=== PATIENT | female | born 1930 | race Caucasian/White ===

== ENCOUNTER 2016-07-04 08:22 | Outpatient (CLI) | payer MEDICARE, MEDICAID ==
[~2016-07-04 08:22] MED LIST: ACAR25TA2 PO; AMLO5TAB4 PO; ERYT-111 PO; LEVO750T46 PO; LOSA1TAB35 PO; PRAV40TA3 PO; [UNRECOGNIZED DRUG - CODE]
== END 2016-07-04 23:59 | disposition home or self-care (01) ==
LOC: WOU 08:22
PROVIDERS: ATTEND Podiatrist Foot & Ankle Surgery
DX: I83.013 Varicose veins of right lower extremity with ulcer of ankle (principal); L97.312 Non-pressure chronic ulcer of right ankle with fat layer exposed; I83.891 Varicose veins of right lower extremity with other complications; B35.1 Tinea unguium; E11.9 Type 2 diabetes mellitus without complications; I10 Essential (primary) hypertension; E78.5 Hyperlipidemia, unspecified; Z96.651 Presence of right artificial knee joint
CPT/HCPCS: 15271; A6402; Q4133

== ENCOUNTER 2016-07-11 08:10 | Outpatient (CLI) | payer MEDICARE, MEDICAID | END 2016-07-11 23:59 | disposition home or self-care (01) | LOC: WOU 08:10 | PROVIDERS: ATTEND Podiatrist Foot & Ankle Surgery | DX: I83.013 Varicose veins of right lower extremity with ulcer of ankle (principal); L97.312 Non-pressure chronic ulcer of right ankle with fat layer exposed; I83.891 Varicose veins of right lower extremity with other complications; Z96.651 Presence of right artificial knee joint; I10 Essential (primary) hypertension; E11.9 Type 2 diabetes mellitus without complications; E78.5 Hyperlipidemia, unspecified | CPT/HCPCS: A6402; A6452; G0463 ==

== ENCOUNTER 2016-07-18 08:44 | Outpatient (CLI) | payer MEDICARE, MEDICAID | END 2016-07-18 23:59 | disposition home or self-care (01) | LOC: WOU 08:44 | PROVIDERS: ATTEND Podiatrist Foot & Ankle Surgery | DX: I83.013 Varicose veins of right lower extremity with ulcer of ankle (principal); L97.311 Non-pressure chronic ulcer of right ankle limited to breakdown of skin; B35.1 Tinea unguium; I83.891 Varicose veins of right lower extremity with other complications; Z96.651 Presence of right artificial knee joint; E11.9 Type 2 diabetes mellitus without complications; I10 Essential (primary) hypertension; Z79.899 Other long term (current) drug therapy; Z79.84 Long term (current) use of oral hypoglycemic drugs | CPT/HCPCS: 11042; A6253; A6402 ==

== ENCOUNTER 2016-08-08 08:50 | Outpatient (CLI) | payer MEDICARE, MEDICAID | END 2016-08-08 23:59 | disposition home or self-care (01) | LOC: WOU 08:50 | PROVIDERS: ATTEND Podiatrist Foot & Ankle Surgery | DX: I83.891 Varicose veins of right lower extremity with other complications (principal); Z96.651 Presence of right artificial knee joint; E11.9 Type 2 diabetes mellitus without complications; B35.1 Tinea unguium | CPT/HCPCS: A6402; G0463 ==

== ENCOUNTER 2016-09-12 08:25 | Outpatient (CLI) | payer MEDICARE, MEDICAID | END 2016-09-12 23:59 | disposition home or self-care (01) | LOC: WOU 08:25 | PROVIDERS: ATTEND Podiatrist Foot & Ankle Surgery | DX: I83.891 Varicose veins of right lower extremity with other complications (principal); L85.3 Xerosis cutis; L84 Corns and callosities; E11.9 Type 2 diabetes mellitus without complications | CPT/HCPCS: G0463 ==

== ENCOUNTER 2016-12-12 08:20 | Outpatient (CLI) | payer MEDICARE, MEDICAID | END 2016-12-12 23:59 | disposition home or self-care (01) | LOC: WOU 08:20 | PROVIDERS: ATTEND Podiatrist Foot & Ankle Surgery | DX: I83.013 Varicose veins of right lower extremity with ulcer of ankle (principal); L97.311 Non-pressure chronic ulcer of right ankle limited to breakdown of skin; I83.891 Varicose veins of right lower extremity with other complications; L85.3 Xerosis cutis; I10 Essential (primary) hypertension; E78.5 Hyperlipidemia, unspecified; Z83.3 Family history of diabetes mellitus; Z96.652 Presence of left artificial knee joint | CPT/HCPCS: A6402; G0463 ==

== ENCOUNTER 2016-12-26 09:08 | Outpatient (CLI) | payer MEDICARE, MEDICAID | END 2016-12-26 23:59 | disposition home health service (06) | LOC: WOU 09:08 | PROVIDERS: ATTEND Podiatrist Foot & Ankle Surgery | DX: I83.213 Varicose veins of right lower extremity with both ulcer of ankle and inflammation (principal); L97.311 Non-pressure chronic ulcer of right ankle limited to breakdown of skin; L90.5 Scar conditions and fibrosis of skin; Z83.3 Family history of diabetes mellitus; I10 Essential (primary) hypertension; E78.5 Hyperlipidemia, unspecified; I83.811 Varicose veins of right lower extremity with pain; Z96.652 Presence of left artificial knee joint | CPT/HCPCS: 11042; A6402 ==

== ENCOUNTER 2017-01-02 09:39 | Outpatient (CLI) | payer MEDICARE, MEDICAID | END 2017-01-02 23:59 | disposition home health service (06) | LOC: WOU 09:39 | PROVIDERS: ATTEND Podiatrist Foot & Ankle Surgery | DX: I83.013 Varicose veins of right lower extremity with ulcer of ankle (principal); L97.311 Non-pressure chronic ulcer of right ankle limited to breakdown of skin; I83.892 Varicose veins of left lower extremity with other complications | CPT/HCPCS: 11042; A6402 ==

== ENCOUNTER 2017-01-07 08:47 | Outpatient (CLI) | payer MEDICARE, MEDICAID | END 2017-01-07 23:59 | disposition home health service (06) | LOC: WOU 08:47 | PROVIDERS: ATTEND Podiatrist Foot & Ankle Surgery | DX: E11.69 Type 2 diabetes mellitus with other specified complication (principal); I87.311 Chronic venous hypertension (idiopathic) with ulcer of right lower extremity; L97.311 Non-pressure chronic ulcer of right ankle limited to breakdown of skin; R52 Pain, unspecified; Z96.651 Presence of right artificial knee joint; E11.622 Type 2 diabetes mellitus with other skin ulcer | CPT/HCPCS: 11042; A6402 ==

== ENCOUNTER 2017-01-14 09:10 | Outpatient (CLI) | payer MEDICARE, MEDICAID | END 2017-01-14 23:59 | disposition home health service (06) | LOC: WOU 09:10 | PROVIDERS: ATTEND Podiatrist Foot & Ankle Surgery | DX: I87.311 Chronic venous hypertension (idiopathic) with ulcer of right lower extremity (principal); L97.311 Non-pressure chronic ulcer of right ankle limited to breakdown of skin; Z96.652 Presence of left artificial knee joint; L95.9 Vasculitis limited to the skin, unspecified; E11.9 Type 2 diabetes mellitus without complications | CPT/HCPCS: 11042; A6402 ==

== ENCOUNTER 2017-01-21 13:00 | Outpatient (CLI) | payer MEDICARE, MEDICAID | END 2017-01-21 23:59 | disposition home health service (06) | LOC: WOU 13:00 | PROVIDERS: ATTEND Podiatrist Foot & Ankle Surgery | DX: E11.621 Type 2 diabetes mellitus with foot ulcer (principal); L97.511 Non-pressure chronic ulcer of other part of right foot limited to breakdown of skin; L95.9 Vasculitis limited to the skin, unspecified; I83.891 Varicose veins of right lower extremity with other complications; Z96.651 Presence of right artificial knee joint | CPT/HCPCS: 15271; 15275; A6402 ==

== ENCOUNTER 2017-01-28 09:38 | Outpatient (CLI) | payer MEDICARE, MEDICAID | END 2017-01-28 23:59 | disposition home health service (06) | LOC: WOU 09:38 | PROVIDERS: ATTEND Podiatrist Foot & Ankle Surgery | DX: I83.013 Varicose veins of right lower extremity with ulcer of ankle (principal); L97.311 Non-pressure chronic ulcer of right ankle limited to breakdown of skin; Z96.651 Presence of right artificial knee joint; I10 Essential (primary) hypertension; I83.811 Varicose veins of right lower extremity with pain; E11.51 Type 2 diabetes mellitus with diabetic peripheral angiopathy without gangrene | CPT/HCPCS: 11042; A6402 ==

== ENCOUNTER 2017-02-04 08:34 | Outpatient (CLI) | payer MEDICARE, MEDICAID | END 2017-02-04 23:59 | disposition home health service (06) | LOC: WOU 08:34 | PROVIDERS: ATTEND Podiatrist Foot & Ankle Surgery | DX: I83.015 Varicose veins of right lower extremity with ulcer other part of foot (principal); L97.511 Non-pressure chronic ulcer of other part of right foot limited to breakdown of skin; I83.893 Varicose veins of bilateral lower extremities with other complications; Z96.651 Presence of right artificial knee joint; I10 Essential (primary) hypertension | CPT/HCPCS: 15275; A6402 ×2; Q4132 ×2 ==

== ENCOUNTER 2017-02-11 11:10 | Outpatient (CLI) | payer MEDICARE, MEDICAID | END 2017-02-11 23:59 | disposition home health service (06) | LOC: WOU 11:10 | PROVIDERS: ATTEND Podiatrist Foot & Ankle Surgery | DX: E11.621 Type 2 diabetes mellitus with foot ulcer (principal); L97.511 Non-pressure chronic ulcer of other part of right foot limited to breakdown of skin; Z96.651 Presence of right artificial knee joint; I77.6 Arteritis, unspecified; I87.301 Chronic venous hypertension (idiopathic) without complications of right lower extremity | CPT/HCPCS: 15275; A6402; Q4133 ==

== ENCOUNTER 2017-02-18 09:28 | Outpatient (CLI) | payer MEDICARE, MEDICAID | END 2017-02-18 23:59 | disposition home health service (06) | LOC: WOU 09:28 | PROVIDERS: ATTEND Podiatrist Foot & Ankle Surgery | DX: E11.621 Type 2 diabetes mellitus with foot ulcer (principal); L97.511 Non-pressure chronic ulcer of other part of right foot limited to breakdown of skin; Z96.651 Presence of right artificial knee joint; I77.6 Arteritis, unspecified; I87.301 Chronic venous hypertension (idiopathic) without complications of right lower extremity | CPT/HCPCS: 15275; A6402; Q4133 ×2 ==

== ENCOUNTER 2017-02-27 14:00 | Outpatient (CLI) | payer MEDICARE, MEDICAID | END 2017-02-27 23:59 | disposition home or self-care (01) | LOC: WOU 14:00 | PROVIDERS: ATTEND Podiatrist Foot & Ankle Surgery | DX: I87.2 Venous insufficiency (chronic) (peripheral) (principal); L97.511 Non-pressure chronic ulcer of other part of right foot limited to breakdown of skin; R60.0 Localized edema; Z96.651 Presence of right artificial knee joint | CPT/HCPCS: 87070; 87077; 87186 ×2; A6402; G0463 ==

== ENCOUNTER 2017-03-06 09:50 | Outpatient (CLI) | payer MEDICARE, MEDICAID | END 2017-03-06 23:59 | disposition home health service (06) | DX: I87.311 Chronic venous hypertension (idiopathic) with ulcer of right lower extremity (principal); L97.511 Non-pressure chronic ulcer of other part of right foot limited to breakdown of skin; L90.5 Scar conditions and fibrosis of skin; Z96.651 Presence of right artificial knee joint; B95.7 Other staphylococcus as the cause of diseases classified elsewhere | CPT/HCPCS: 15275; A6402; Q4132 ×2 ==

== ENCOUNTER 2017-03-13 09:18 | Outpatient (CLI) | payer MEDICARE, MEDICAID | END 2017-03-13 23:59 | disposition home health service (06) | LOC: WOU 09:18 | PROVIDERS: ATTEND Podiatrist Foot & Ankle Surgery | DX: I87.311 Chronic venous hypertension (idiopathic) with ulcer of right lower extremity (principal); L97.511 Non-pressure chronic ulcer of other part of right foot limited to breakdown of skin; L90.5 Scar conditions and fibrosis of skin; B95.7 Other staphylococcus as the cause of diseases classified elsewhere; Z96.653 Presence of artificial knee joint, bilateral; M79.671 Pain in right foot | CPT/HCPCS: 11042; A6402 ==

== ENCOUNTER 2017-03-20 09:00 | Outpatient (CLI) | payer MEDICARE, MEDICAID | END 2017-03-20 23:59 | disposition home health service (06) | LOC: WOU 09:00 | PROVIDERS: ATTEND Podiatrist Foot & Ankle Surgery | DX: I87.311 Chronic venous hypertension (idiopathic) with ulcer of right lower extremity (principal); L97.511 Non-pressure chronic ulcer of other part of right foot limited to breakdown of skin; Z96.651 Presence of right artificial knee joint | CPT/HCPCS: 15275; A6402 ==

== ENCOUNTER 2017-03-25 09:19 | Outpatient (CLI) | payer MEDICARE, MEDICAID | END 2017-03-25 23:59 | disposition home health service (06) | LOC: WOU 09:19 | PROVIDERS: ATTEND Podiatrist Foot & Ankle Surgery | DX: I87.311 Chronic venous hypertension (idiopathic) with ulcer of right lower extremity (principal); L97.511 Non-pressure chronic ulcer of other part of right foot limited to breakdown of skin; Z96.651 Presence of right artificial knee joint; L90.9 Atrophic disorder of skin, unspecified | CPT/HCPCS: 11042; A6402 ==

== ENCOUNTER 2017-04-07 09:20 | Outpatient (CLI) | payer MEDICARE, MEDICAID | END 2017-04-07 23:59 | disposition home or self-care (01) | LOC: WOU 09:20 | PROVIDERS: ATTEND Podiatrist Foot & Ankle Surgery | DX: I87.2 Venous insufficiency (chronic) (peripheral) (principal); L97.511 Non-pressure chronic ulcer of other part of right foot limited to breakdown of skin; R60.0 Localized edema; L90.9 Atrophic disorder of skin, unspecified; Z96.651 Presence of right artificial knee joint | CPT/HCPCS: 11042; A6402 ==

== ENCOUNTER 2017-04-14 09:45 | Outpatient (CLI) | payer MEDICARE, MEDICAID | END 2017-04-14 23:59 | disposition home health service (06) | LOC: WOU 09:45 | PROVIDERS: ATTEND Podiatrist Foot & Ankle Surgery | DX: I87.2 Venous insufficiency (chronic) (peripheral) (principal); L97.511 Non-pressure chronic ulcer of other part of right foot limited to breakdown of skin; B35.3 Tinea pedis; L90.9 Atrophic disorder of skin, unspecified; R60.0 Localized edema; Z96.651 Presence of right artificial knee joint | CPT/HCPCS: 15275; A6402 ×2; Q4133 ×2 ==

== ENCOUNTER 2017-04-21 09:39 | Outpatient (CLI) | payer MEDICARE, MEDICAID | END 2017-04-21 23:59 | disposition home health service (06) | LOC: WOU 09:39 | PROVIDERS: ATTEND Podiatrist Foot & Ankle Surgery | DX: I83.015 Varicose veins of right lower extremity with ulcer other part of foot (principal); L97.511 Non-pressure chronic ulcer of other part of right foot limited to breakdown of skin; L90.5 Scar conditions and fibrosis of skin; I83.891 Varicose veins of right lower extremity with other complications; Z96.651 Presence of right artificial knee joint | CPT/HCPCS: 11042; A6402 ==

== ENCOUNTER 2017-05-01 11:00 | Outpatient (CLI) | payer MEDICARE, MEDICAID | END 2017-05-01 23:59 | disposition home health service (06) | LOC: WOU 11:00 | PROVIDERS: ATTEND Podiatrist Foot & Ankle Surgery | DX: I87.2 Venous insufficiency (chronic) (peripheral) (principal); L97.511 Non-pressure chronic ulcer of other part of right foot limited to breakdown of skin; R60.0 Localized edema; L90.5 Scar conditions and fibrosis of skin; Z96.651 Presence of right artificial knee joint | CPT/HCPCS: 11042; A6402 ==

== ENCOUNTER 2017-05-08 09:21 | Outpatient (CLI) | payer MEDICARE, MEDICAID | END 2017-05-08 23:59 | disposition home health service (06) | LOC: WOU 09:21 | PROVIDERS: ATTEND Podiatrist Foot & Ankle Surgery | DX: I87.2 Venous insufficiency (chronic) (peripheral) (principal); L97.511 Non-pressure chronic ulcer of other part of right foot limited to breakdown of skin; R60.0 Localized edema; Z96.651 Presence of right artificial knee joint; I80.9 Phlebitis and thrombophlebitis of unspecified site; L85.3 Xerosis cutis | CPT/HCPCS: 11042; A6402 ==

== ENCOUNTER 2017-06-12 09:40 | Outpatient (CLI) | payer MEDICARE, MEDICAID | END 2017-06-12 23:59 | disposition home health service (06) | LOC: WOU 09:40 | PROVIDERS: ATTEND Podiatrist Foot & Ankle Surgery | DX: I83.215 Varicose veins of right lower extremity with both ulcer other part of foot and inflammation (principal); L97.512 Non-pressure chronic ulcer of other part of right foot with fat layer exposed; I83.891 Varicose veins of right lower extremity with other complications; Z96.651 Presence of right artificial knee joint; M65.871 Other synovitis and tenosynovitis, right ankle and foot; L85.3 Xerosis cutis; E11.9 Type 2 diabetes mellitus without complications | CPT/HCPCS: 17250; A6402 ==

== ENCOUNTER 2017-06-18 11:00 | Outpatient (CLI) | payer MEDICARE, MEDICAID ==
[~2017-06-18 11:00] MED LIST changes: -LOSA1TAB35 PO; +LOSA1TAB42 PO
== END 2017-06-18 23:59 | disposition home or self-care (01) ==
LOC: WOU 11:00
PROVIDERS: ATTEND Podiatrist Foot & Ankle Surgery
DX: I82.531 Chronic embolism and thrombosis of right popliteal vein (principal); R60.0 Localized edema; L97.519 Non-pressure chronic ulcer of other part of right foot with unspecified severity
CPT/HCPCS: 93926-TC; 93971-TC

== ENCOUNTER 2017-06-24 08:05 | Outpatient (CLI) | payer MEDICARE, MEDICAID | END 2017-06-24 23:59 | disposition home health service (06) | LOC: WOU 08:05 | PROVIDERS: ATTEND Podiatrist Foot & Ankle Surgery | DX: I87.311 Chronic venous hypertension (idiopathic) with ulcer of right lower extremity (principal); L97.512 Non-pressure chronic ulcer of other part of right foot with fat layer exposed; Z96.651 Presence of right artificial knee joint | CPT/HCPCS: 11042; A6402 ==

== ENCOUNTER 2017-07-22 09:05 | Outpatient (CLI) | payer MEDICARE, MEDICAID | END 2017-07-22 23:59 | disposition home health service (06) | LOC: WOU 09:05 | PROVIDERS: ATTEND Podiatrist Foot & Ankle Surgery | DX: E11.59 Type 2 diabetes mellitus with other circulatory complications (principal); I87.2 Venous insufficiency (chronic) (peripheral); E11.621 Type 2 diabetes mellitus with foot ulcer; L97.512 Non-pressure chronic ulcer of other part of right foot with fat layer exposed; E11.42 Type 2 diabetes mellitus with diabetic polyneuropathy | CPT/HCPCS: 11042; A6402 ==

== ENCOUNTER → 2017-07-23 | Outpatient (CLI) | payer MEDICARE, MEDICAID ==
[2017-07-23 09:59] LABS: BASOPHILS % (AUTO) 0.3 % (0.0-2.0); EOSINOPHILS # (AUTO) 0.1 /CMM (0.0-0.7); EOSINOPHILS % (AUTO) 2.2 % (0.0-6.0); HEMATOCRIT 38 % (33-45); HEMOGLOBIN 13.4 g/dL (11.5-14.8); LYMPHOCYTES # (AUTO) 0.9 /CMM (0.8-4.8); LYMPHOCYTES % (AUTO) 16.6 % (20.0-44.0); MEAN CORPUSCULAR HEMOGLOBIN 33 PG (26.0-33.0); MEAN CORPUSCULAR HGB CONC 35 g/dl (31.0-36.0); MEAN CORPUSCULAR VOLUME 93 fL (82-100); MONOCYTES # (AUTO) 0.4 /CMM (0.1-1.30); MONOCYTES % (AUTO) 7.3 % (2.0-12.0); NEUTROPHILS # (AUTO) 3.9 /CMM (1.8-8.9); NEUTROPHILS % (AUTO) 73.6 % (43.0-81.0); PLATELET COUNT (AUTO) 230 /CMM (150-450); RDW COEFFICIENT OF VARIATION 13.1 (11.5-15.0); RED BLOOD CELL COUNT(AUTO) 4.08 MIL/uL (4.0-5.2); WHITE BLOOD COUNT (AUTO) 5.2 K/uL (4.3-11.0)
[2017-07-23 10:10] LABS: CARBON DIOXIDE 29 mmol/L (21-32); CHLORIDE 104 mmol/L (98-107); CREATININE 0.9 mg/dL (0.6-1.3); GLUCOSE 84 mg/dL (74-106); POTASSIUM 4.3 mmol/L (3.5-5.1); SODIUM SERUM 142 mmol/L (136-145); UREA NITROGEN, BLOOD 26 mg/dL (7-18)
[2017-07-23 10:27] LABS: INR 1.02 (0.87-1.13)
== END | disposition home or self-care (01) ==
LOC: LAB 09:31
PROVIDERS: ATTEND Podiatrist Foot & Ankle Surgery
DX: Z01.818 Encounter for other preprocedural examination (principal); L97.312 Non-pressure chronic ulcer of right ankle with fat layer exposed; J84.10 Pulmonary fibrosis, unspecified; I70.0 Atherosclerosis of aorta; R91.1 Solitary pulmonary nodule
CPT/HCPCS: 36415; 71045-TC; 80048-TC; 85025-TC; 85610-TC; 85730-TC

== ENCOUNTER 2017-08-04 05:20 | Inpatient (IN) | payer MEDICARE, MEDICAID ==
[~2017-08-04] VITALS: Ht 162.6 cm; Wt 75.3 kg
[2017-08-04] VITALS (7 sets, daily range): BP systolic 109–158; BP diastolic 58–86
[2017-08-04] MEDS ORDERED: BUPIVACAINE 0.5 % PF 150 MG/30 ML VIAL ONE (06:51)
[2017-08-04] MEDS ORDERED: ANESTHESIA TRAY IN PYXIS 1 EA TRAY MC ONE (06:51)
[2017-08-04] MEDS ORDERED: LIDOCAINE 0.5% HCL 50 ML VIAL ONE (06:51)
[2017-08-04] MEDS ORDERED: MINERAL OIL 10 ML VIAL MC ONE (06:53)
[2017-08-04] MEDS ORDERED: LABETALOL HCL IV 100MG VIAL ONE (07:57)
--- NOTE | 2017-08-04 08:30 | NUR ---
RN NOTES: PATIENT ARRIVED FROM SURGERY. PATIENT'S PROCEDURE WAS CANCELLED DUE TO HIGH BLOOD PRESSURE. PATIENT SINUS RHYTHM ON TELE MONITOR WITH HEART RATE OF 70. NONLABORED BREATHING NOTE ON ROOM AIR. PATIENT AOX4 TAJIK SPEAKING. PATIENT DENYING HEADACHES AT THE MOMENT, DENYING DIZZINESS, DENYING PAIN. NO SLURRED SPEECH NOTED. EXTREMITIES ASSESSED. NO WEAKNESS NOTED ON UPPER EXTREMITIES AND NO DRIFT. PATIENT HAS MILD WEAKNESS ON LOWER EXTREMITIES, NORMAL PER DAUGHTER PATIENT USES A CANE AT HOME. PATIENT ABLE TO AMBULATE WITH ASSISTANCE IN A STEADY MANNER. PATIENT PERRLA, AND SMILE IS EVEN. IV SITE ON RIGHT AC PATENT AND INTACT. BED IN LOWEST LOCKED POSITION. CALL LIGHT WITHIN REACH. PATIENT EDUCATED ON USAGE OF CALL LIGHT.
--- NOTE | 2017-08-04 09:20 | NUR ---
RN NOTES: PER PATIENT AND DAUGHTER, PATIENT WANTS TO BE FULL CODE DURING STAY. EXPLAINED ALL ASPECTS OF FULL CODE,PATIENT AGREED. GAVE A POLST TO THE PATIENT'S DAUGHTER WHO REQUIRED IT FOR TO UNDERSTAND OTHER OPTIONS. BOTH PATIENT AND DAUGHTER BOTH VERBALIZED WANTING TO BE FULL CODE DURING STAY
[2017-08-04 09:27] LABS: BASOPHILS % (AUTO) 0.2 % (0.0-2.0); EOSINOPHILS # (AUTO) 0.1 /CMM (0.0-0.7); EOSINOPHILS % (AUTO) 1.6 % (0.0-6.0); HEMATOCRIT 37 % (33-45); HEMOGLOBIN 12.8 g/dL (11.5-14.8); LYMPHOCYTES # (AUTO) 0.8 /CMM (0.8-4.8); LYMPHOCYTES % (AUTO) 20.7 % (20.0-44.0); MEAN CORPUSCULAR HEMOGLOBIN 32 PG (26.0-33.0); MEAN CORPUSCULAR HGB CONC 35 g/dl (31.0-36.0); MEAN CORPUSCULAR VOLUME 93 fL (82-100); MONOCYTES # (AUTO) 0.3 /CMM (0.1-1.30); MONOCYTES % (AUTO) 8.3 % (2.0-12.0); NEUTROPHILS # (AUTO) 2.8 /CMM (1.8-8.9); NEUTROPHILS % (AUTO) 69.2 % (43.0-81.0); PLATELET COUNT (AUTO) 182 /CMM (150-450); RDW COEFFICIENT OF VARIATION 12.7 (11.5-15.0); RED BLOOD CELL COUNT(AUTO) 3.97 MIL/uL (4.0-5.2)
[2017-08-04] MEDS ORDERED: AMLODIPINE BESYLATE 2.5 MG TABLET PO SCH (09:34)
[2017-08-04] MEDS ORDERED: ACARBOSE 25 MG TABLET PO SCH (09:34)
[2017-08-04] MEDS: VALSARTAN 80 MG TABLET PO SCH (09:51)
[2017-08-04] MEDS: CARVEDILOL 6.25 MG TABLET PO SCH ×2 (09:52→21:31)
--- NOTE | 2017-08-04 09:54 | NUR ---
RN NOTES PER DR MCCLURE, GIVE BP MEDS
[2017-08-04 10:08] LABS: CARBON DIOXIDE 26 mmol/L (21-32); CHLORIDE 111 mmol/L (98-107); CREATININE 0.8 mg/dL (0.6-1.3); GLUCOSE 101 mg/dL (74-106); POTASSIUM 3.9 mmol/L (3.5-5.1); SODIUM SERUM 146 mmol/L (136-145); UREA NITROGEN, BLOOD 28 mg/dL (7-18)
[2017-08-04 10:31] LABS: ALANINE AMINOTRANSFERASE 37 U/L (12-78); ALBUMIN 3.6 g/dL (3.4-5.0); ALKALINE PHOSPHATASE 61 U/L (46-116); ASPARTATE AMINOTRANSFERASE 29 U/L (15-37); BILIRUBIN,TOTAL 0.3 mg/dL (0.2-1.0); PHOSPHORUS 3.6 mg/dL (2.5-4.9); TOTAL PROTEIN, SERUM 7.1 g/dL (6.4-8.2)
[2017-08-04 10:33] LABS: FERRITIN 59 ng/mL (8-388); THYROID STIMULATING HORMONE 0.573 uIU/mL (0.358-3.74)
--- NOTE | 2017-08-04 11:00 | NUR ---
RN NOTES: AWAITING IDOSORB ARRIVAL FROM PHARMACY. WOUND KEPT CLEAN AND DRY
--- NOTE | 2017-08-04 11:26 | NUR ---
RN NOTES: PATIENT'S RIGHT ANKLE WOUND CLEANSED WITH NS, SCANT PURULENT DRAINAGE NOTED. DRIED GENTLY AND COVERED WITH MEPILEX
[2017-08-04] MEDS: ATORVASTATIN 10 MG TABLET PO SCH (11:44)
[2017-08-04] MEDS: PANTOPRAZOLE 40 MG TABLET.DR PO SCH (11:44)
[2017-08-04] MEDS: MECLIZINE HCL 12.5 MG TABLET PO SCH ×2 (11:44→17:00)
[2017-08-04] MEDS: AMLODIPINE BESYLATE 5 MG TABLET PO SCH (11:45)
--- NOTE | 2017-08-04 11:48 | NUR ---
RN NOTES: MEDICATIONS ADMINISTERED NOW, AWAITING FREDERICK MATAMOROS'S INSTRUCTIONS. ALSO ORDERED TO ORDER DIABETIC DIET
[2017-08-04] MEDS: CADEXOMER IODINE UD 5 GM TUBE TP SCH ×2 (12:00→17:54)
[2017-08-04] MEDS: MELOXICAM 7.5 MG TABLET PO SCH (12:00)
--- NOTE | 2017-08-04 13:00 | NUR ---
RN NOTES: OFFERED PATIENT TO CHANGE DRESSING WITH IODOSORB. PATIENT DECLINED AND STATED " NO ES SURY." WILL OFFER AGAIN
[2017-08-04 13:47] LABS: IRON, SERUM 87 ug/dl (50-175); TOTAL IRON BINDING CAPACITY 323 ug/dl (250-450)
[2017-08-04] MEDS: CEFAZOLIN SODIUM 1 GM in IV SODIUM CHLORIDE 0.9% 50 ML IV SCH ×2 (13:47→21:31)
--- NOTE | 2017-08-04 15:12 | NUR ---
RN NOTES: FREDERICK MATAMOROS NP ORDERED NORCO 5/325, PRN Q 4 HOURS IF NEEDED FOR HEADACHES DURING PATIENT ROUNDS
[2017-08-04] MEDS ORDERED: HYDROCODONE/APAP 5/325MG 1 EACH TABLET PO PRN (15:30)
[2017-08-04] MEDS: ACARBOSE 50 MG TABLET PO SCH (17:53)
--- NOTE | 2017-08-04 18:11 | NUR ---
RN NOTES: PATIENT REFUSED MECLIZINE AT 1700, STATING THAT SHE DOES NOT FEEL DIZZY. BENEFITS AND RISKS EXPLAINED TO PATIENT. EARLIER IN THE DAY,PATIENT ALSO REFUSED MOBIC, STATING THAT SHE DOES NOT HAVE ANY DISCOMFORT. BENEFITS AND RISKS EXPLAINED MULTIPLE TIMES. PATIENT STILL REFUSING
--- NOTE | 2017-08-04 18:13 | NUR ---
RN NOTES PATIENT CONSENTED TO SURGERY TOMORROW AT 07:30 WITH DAUGHTER BRADEN TRANSLATING
--- NOTE | 2017-08-04 18:15 | NUR ---
RN NOTES: CALLED [facility] FOR DELIVERY OF [facility] P[facility], AWAITING ARRIVAL
--- NOTE | 2017-08-04 18:15 | NUR ---
RN NOTES: SWALLOWING ASSESSED DURING MEAL TIMES. NO COUGHING WHEN EATING, NO DROOLING NOTED ON MOUTH. NO DIFFICULTY NOTED AND PATIENT ABLE TO TOLERATE DIET
--- NOTE | 2017-08-04 19:25 | NUR ---
RN NOTES: PATIENT RESTING IN BED. PATIENT SINUS RHYTHM ON TELE MONITOR WITH HEART RATE OF 70. NONLABORED BREATHING NOTE ON ROOM AIR. PATIENT AOX4 LUXEMBOURGER SPEAKING. PATIENT DENYING HEADACHES AT THE MOMENT, DENYING DIZZINESS, DENYING PAIN. NO SLURRED SPEECH NOTED. EXTREMITIES ASSESSED. NO WEAKNESS NOTED ON UPPER EXTREMITIES AND NO DRIFT. PATIENT AMBULATED TO BATHROOM WITH SUPERVISION IN A STEADY MANNER. PATIENT PERRLA, AND SMILE IS EVEN. IV SITE ON RIGHT AC PATENT AND INTACT. BED IN LOWEST LOCKED POSITION. CALL LIGHT WITHIN REACH.PATIENT INSTRUCTED THAT PER FREDERICK MATAMOROS NP, PATIENT IS TO BE NPO POST MIDNIGHT. PATIENT VERBALIZED UNDERSTANDING. ENDORSED TO NEXT SHIFT
--- NOTE | 2017-08-04 19:30 | NUR ---
TELE/RN NOTES RECEIVED PT. SITTING UP IN BED. AWAKE, ALERT AND ORIENTED X4. BREATHING EVEN AND UNLABORED ON ROOM AIR. NO SOB, RESPIRATORY DISTRESS OR COMPLAINTS OF PAIN NOTED AT THIS TIME. PT. WITH EXTERNAL POLYMER SCIENTIST PRESENT AND INTACT. CURRENT RHYTHM = SINUS RHYTHM HR 63. PT. WITH RIGHT ARM 20 GAUGE IV SALINE LOCK PRESENT, PATENT AND INTACT. PT. WITH FAMILY MEMBERS PRESENT AT BEDSIDE. EDUCATED PT. ON BEING NPO AFTER MIDNIGHT PENDING WOUND DEBRIDEMENT TOMORROW. PER DAYSHIFT NURSE CONSENT IS SIGNED AND PLACED IN CHART. BED LOCKED AND IN LOWEST POSITION, SIDE RAILS UP X2, BED ALARM ON, CALL LIGHT WITHIN REACH, WILL CONTINUE TO MONITOR.
[2017-08-05] VITALS: BP 122/69
[2017-08-05 04:00] VITALS: BP 149/82
[2017-08-05] MEDS: CEFAZOLIN SODIUM 1 GM in IV SODIUM CHLORIDE 0.9% 50 ML IV SCH ×3 (05:39→21:24)
[2017-08-05 06:21] LABS: INR 1.03 (0.87-1.13)
[2017-08-05 06:23] LABS: BASOPHILS % (AUTO) 0.4 % (0.0-2.0); EOSINOPHILS # (AUTO) 0.2 /CMM (0.0-0.7); EOSINOPHILS % (AUTO) 4.4 % (0.0-6.0); HEMATOCRIT 37 % (33-45); HEMOGLOBIN 12.7 g/dL (11.5-14.8); LYMPHOCYTES # (AUTO) 1.1 /CMM (0.8-4.8); LYMPHOCYTES % (AUTO) 27.6 % (20.0-44.0); MEAN CORPUSCULAR HEMOGLOBIN 33 PG (26.0-33.0); MEAN CORPUSCULAR HGB CONC 35 g/dl (31.0-36.0); MEAN CORPUSCULAR VOLUME 94 fL (82-100); MONOCYTES # (AUTO) 0.4 /CMM (0.1-1.30); MONOCYTES % (AUTO) 9.5 % (2.0-12.0); NEUTROPHILS # (AUTO) 2.3 /CMM (1.8-8.9); NEUTROPHILS % (AUTO) 58.1 % (43.0-81.0); PLATELET COUNT (AUTO) 190 /CMM (150-450); RDW COEFFICIENT OF VARIATION 12.9 (11.5-15.0); RED BLOOD CELL COUNT(AUTO) 3.92 MIL/uL (4.0-5.2); WHITE BLOOD COUNT (AUTO) 3.9 K/uL (4.3-11.0)
[2017-08-05 06:29] LABS: ALANINE AMINOTRANSFERASE 26 U/L (12-78); ALBUMIN 3.4 g/dL (3.4-5.0); ALKALINE PHOSPHATASE 59 U/L (46-116); ASPARTATE AMINOTRANSFERASE 26 U/L (15-37); BILIRUBIN,TOTAL 0.4 mg/dL (0.2-1.0); CALCIUM, SERUM 8.9 mg/dL (8.5-10.1); CARBON DIOXIDE 28 mmol/L (21-32); CHLORIDE 108 mmol/L (98-107); CREATININE 0.8 mg/dL (0.6-1.3); GLUCOSE 100 mg/dL (74-106); MAGNESIUM 2.1 mg/dL (1.8-2.4); PHOSPHORUS 3.7 mg/dL (2.5-4.9); SODIUM SERUM 144 mmol/L (136-145); TOTAL PROTEIN, SERUM 6.7 g/dL (6.4-8.2); UREA NITROGEN, BLOOD 23 mg/dL (7-18)
[2017-08-05 06:36] LABS: TROPONIN I < 0.017 ng/mL (0.00-0.056)
--- NOTE | 2017-08-05 06:50 | NUR ---
TELE/RN NOTES PT. LEFT THE FLOOR FOR OR PROCEDURE RIGHT ANKLE WOUND DEBRIDEMENT. PT. VITAL SIGNS STABLE, BP 140/78, HR 85, O2 SAT 99% ON ROOM AIR, RR 20, TEMP 98.0 F. PT. LEFT THE FLOOR VIA BED ACCOMPANIED BY OR NURSE. WILL ENDORSE TO DAYSHIFT NURSE FOR CONTINUITY OF CARE.
[2017-08-05] MEDS ORDERED: MINERAL OIL 10 ML VIAL MC ONE (06:52)
[2017-08-05] MEDS ORDERED: ANESTHESIA TRAY IN PYXIS 1 EA TRAY MC ONE (06:52)
[2017-08-05] MEDS ORDERED: BUPIVACAINE 0.5 % PF 150 MG/30 ML VIAL ONE (06:52)
[2017-08-05] MEDS ORDERED: LIDOCAINE 0.5% HCL 50 ML VIAL ONE (06:53)
[2017-08-05] MEDS ORDERED: FENTANYL PF 100MCG/2ML AMPUL ONE (07:19)
[2017-08-05] MEDS ORDERED: MIDAZOLAM HCL 2 MG/2ML VIAL ONE (07:20)
[2017-08-05 08:09] LABS: CHOLESTEROL 208 mg/dL (<200); HDL CHOLESTEROL 42 mg/dL (40-60); LDL 128 mg/dL (0-99); TRIGLYCERIDES 174 mg/dL (30-150)
--- NOTE | 2017-08-05 08:20 | NUR ---
DIRECTOR OF DANCE NOTES PT BACK FROM SURGERY, ACCOMPANIED BY O.R. NURSES, PT IS AWAKE, ALERT AND ORIENTED, NO COMPLAINT OF PAIN, NOT IN DISTRESS, DRESSINGS TO RIGHT FOOT DRY, VITAL SIGNS TAKEN AND RECORDED, WILL CONTINUE TO MONITOR, DAUGHTER BRAVO AT BEDSIDE, INFORMED OF PLAN OF CARE, VERBALIZED UNDERSTANDING.
[2017-08-05] MEDS: CADEXOMER IODINE UD 5 GM TUBE TP SCH ×2 (09:00→17:00)
[2017-08-05] MEDS ORDERED: LOSARTAN POTASSIUM 50 MG TABLET PO SCH (09:00)
[2017-08-05] MEDS: PANTOPRAZOLE 40 MG TABLET.DR PO SCH (09:15)
[2017-08-05] MEDS: VALSARTAN 80 MG TABLET PO SCH (09:17)
[2017-08-05] MEDS: MECLIZINE HCL 12.5 MG TABLET PO SCH ×2 (09:17→16:50)
[2017-08-05] MEDS: MELOXICAM 7.5 MG TABLET PO SCH (09:17)
[2017-08-05] MEDS: ATORVASTATIN 10 MG TABLET PO SCH (09:17)
[2017-08-05] MEDS: CARVEDILOL 6.25 MG TABLET PO SCH ×2 (09:18→22:13)
[2017-08-05] MEDS: AMLODIPINE BESYLATE 5 MG TABLET PO SCH (09:18)
[2017-08-05] MEDS: ACARBOSE 50 MG TABLET PO SCH ×2 (09:18→16:50)
[2017-08-05] MEDS ORDERED: ACETAMINOPHEN 650 MG/20.3 ML UDC NG PRN (11:00)
[2017-08-05] MEDS: IV NS 0.9% 1,000 ML IV PRN ×2 (11:26→23:42)
[2017-08-05] MEDS ORDERED: ACETAMINOPHEN 325 MG TABLET PO PRN (11:30)
[2017-08-05] MEDS ORDERED: ONDANSETRON HCL/PF 4 MG/2 ML VIAL IV PRN (12:00)
[2017-08-05] MEDS ORDERED: ZOLPIDEM TARTRATE 5 MG TABLET PO PRN (12:00)
[2017-08-05] MEDS ORDERED: MORPHINE SULFATE INJ 2 MG/ML DISP.SYRIN IV PRN (12:00)
[2017-08-05] MEDS: ASCORBIC ACID 500 MG TABLET PO SCH (12:17)
[2017-08-05] MEDS: ZINC SULFATE 220 MG CAPSULE PO SCH (12:17)
[2017-08-05] MEDS ORDERED: HYDROCODONE/APAP 10/325MG 1 EA TABLET PO PRN (13:00)
[2017-08-05] MEDS ORDERED: HYDROCODONE/APAP 5/325MG 1 EACH TABLET PO PRN (13:00)
--- NOTE | 2017-08-05 13:07 | NUR ---
RN MS NOTES PT IN BED, AWAKE, ALERT AND ORIENTED, NO COMPLAINT OF PAIN OR DISCOMFORT, IV FLUIDS INFUSING WELL, SEEN BY DR. SUBRAMANIAN, PLAN OF CARE DISCUSSED WITH PT, CALL LIGHT WITHIN REACH, ASSISTED WITH NEEDS.
[2017-08-05 16:00] VITALS: BP 120/60
--- NOTE | 2017-08-05 18:23 | NUR ---
RN MS NOTES PT IN BED, SLEEPS INTERMITTENTLY, ALERT AND ORIENTED, NO COMPLAINT OF PAIN, NOT IN DISTRESS, NO ACTIVE BLEEDING NOTED AT GRAFT SITE AND DEBRIDEMENT SITE, KEPT RIGHT LEG ELEVATED ORDERED, NOTED WITH GOOD APPETITE, IV FLUIDS INFUSING WELL, VITAL SIGNS STABLE, PM CARE RENDERED.
[2017-08-05 20:00] VITALS: BP 119/64
--- NOTE | 2017-08-05 20:00 | NUR ---
MS KOHINOOR OPERATOR INITIAL NOTES. SEEN PT IN BED RESTING WITH EYES CLOSED BUT AROUSES TO TOUCH. DENIES ANY PAIN OR ANY DISCOMFORT. DRESSING STILL INTACT WITH SOME STAIN. KEPT HER WARM AND COMFORTABLE AT ALL TIMES. SITTER AT THE BEDSIDE FOR SAFETY. WILL CONTINUE TO MONITOR. PLACE CALL LIGHT AT REACH.
[2017-08-06] MEDS: CEFAZOLIN SODIUM 1 GM in IV SODIUM CHLORIDE 0.9% 50 ML IV SCH ×2 (05:11→12:44)
[2017-08-06 06:38] LABS: BASOPHILS % (AUTO) 0.4 % (0.0-2.0); EOSINOPHILS # (AUTO) 0.1 /CMM (0.0-0.7); EOSINOPHILS % (AUTO) 2.7 % (0.0-6.0); HEMATOCRIT 37 % (33-45); HEMOGLOBIN 12.7 g/dL (11.5-14.8); LYMPHOCYTES # (AUTO) 1.1 /CMM (0.8-4.8); LYMPHOCYTES % (AUTO) 24.1 % (20.0-44.0); MEAN CORPUSCULAR HEMOGLOBIN 33 PG (26.0-33.0); MEAN CORPUSCULAR HGB CONC 35 g/dl (31.0-36.0); MEAN CORPUSCULAR VOLUME 94 fL (82-100); MONOCYTES # (AUTO) 0.3 /CMM (0.1-1.30); MONOCYTES % (AUTO) 7.3 % (2.0-12.0); NEUTROPHILS # (AUTO) 3.1 /CMM (1.8-8.9); NEUTROPHILS % (AUTO) 65.5 % (43.0-81.0); PLATELET COUNT (AUTO) 182 /CMM (150-450); RDW COEFFICIENT OF VARIATION 12.7 (11.5-15.0); WHITE BLOOD COUNT (AUTO) 4.7 K/uL (4.3-11.0)
[2017-08-06 06:55] LABS: ALANINE AMINOTRANSFERASE 24 U/L (12-78); ALBUMIN 3.2 g/dL (3.4-5.0); ALKALINE PHOSPHATASE 56 U/L (46-116); ASPARTATE AMINOTRANSFERASE 22 U/L (15-37); BILIRUBIN,TOTAL 0.4 mg/dL (0.2-1.0); CARBON DIOXIDE 27 mmol/L (21-32); CHLORIDE 110 mmol/L (98-107); CREATININE 0.8 mg/dL (0.6-1.3); GLUCOSE 96 mg/dL (74-106); MAGNESIUM 1.8 mg/dL (1.8-2.4); POTASSIUM 3.5 mmol/L (3.5-5.1); SODIUM SERUM 145 mmol/L (136-145); TOTAL PROTEIN, SERUM 6.4 g/dL (6.4-8.2); UREA NITROGEN, BLOOD 20 mg/dL (7-18)
--- NOTE | 2017-08-06 07:30 | NUR ---
RN notes: - patient on bed, looking at TV , with infusing IV , denies pain, non-labored respiration , talking to BRAKER PASSENGER TRAIN, tolerating oral fluids.
--- NOTE | 2017-08-06 07:46 | NUR ---
LV/CLOSING NOTES PT AWAKE AND ALERT WATCHING TV , DENIES ANY PAIN OR ANY DISCOMFORT. SLEPT WELL AND STABLE VANCE THE NIGHT. DRESSING DRY AND INTACT. ALL DUE MEDS GIVEN AND ALL NEEDS MET. KEPT HER WARM AND COMFORTABLE AT ALL TIMES.PLACE CALL LIGHT AT REACH. SITTER AT THE BEDSIDE FOR SAFETY. ENDORSE.
[2017-08-06] MEDS: PANTOPRAZOLE 40 MG TABLET.DR PO SCH (07:56)
[2017-08-06] MEDS: ACARBOSE 50 MG TABLET PO SCH (08:17)
[2017-08-06] MEDS: ATORVASTATIN 10 MG TABLET PO SCH (08:18)
[2017-08-06] MEDS: VALSARTAN 80 MG TABLET PO SCH (08:18)
[2017-08-06] MEDS: AMLODIPINE BESYLATE 5 MG TABLET PO SCH (08:18)
[2017-08-06] MEDS: ZINC SULFATE 220 MG CAPSULE PO SCH (08:18)
[2017-08-06] MEDS: MECLIZINE HCL 12.5 MG TABLET PO SCH (08:18)
[2017-08-06 08:19] VITALS: BP 147/77
[2017-08-06] MEDS: ASCORBIC ACID 500 MG TABLET PO SCH (08:19)
[2017-08-06] MEDS: MELOXICAM 7.5 MG TABLET PO SCH (08:19)
[2017-08-06] MEDS: CARVEDILOL 6.25 MG TABLET PO SCH (08:19)
[2017-08-06] MEDS: CADEXOMER IODINE UD 5 GM TUBE TP SCH (08:22)
[2017-08-06] MEDS: IV NS 0.9% 1,000 ML IV PRN (09:54)
--- NOTE | 2017-08-06 14:45 | NUR ---
Received orders for discharge home from MD AYESHA's associate from Dr. Singleton & to follow-up MD tomorrow at wound care center.
--- NOTE | 2017-08-06 17:30 | NUR ---
- PATIENT ATE DINNER & TOLERATED, DISCHARGED INSTRUCTIONS WERE GIVEN TO SON , TO FOLLOW- UP WITH DR. MCCLURE, ( CARDIAC MD), TO HAVE APPT. AT DR. SUBRAMANIAN 'S OFFICE TOMORROW FOR HER AFFECTED LEG. SON AGREED TO CONTINUE HER HOME MEDS INSTRUCTED BY MD. PATIENT WAS DISCHARGED HOME ALERT, FULLY AWAKE, NOT IN DISTRESS, WITH DRY DRESSING AT THE AFFECTED RIGHT LEG .
== END 2017-08-06 18:15 | disposition home or self-care (01) | DRG 264 ==
LOC: DS 05:20 → MED 08:54 → TELE 17:25 → MED 08-05 10:54
PROVIDERS: ADMIT Nurse Practitioner Acute Care; ATTEND Podiatrist Foot & Ankle Surgery
PROC: 0HBHXZZ Excision of Right Upper Leg Skin, External Approach (ICD-10-PCS; 2017-08-05)
PROC: 0HRMX74 Replacement of Right Foot Skin with Autologous Tissue Substitute, Partial Thickness, External Approach (ICD-10-PCS; principal; 2017-08-05 07:39)
DX: I87.2 Venous insufficiency (chronic) (peripheral) (principal); N17.0 Acute kidney failure with tubular necrosis; I16.1 Hypertensive emergency; L97.319 Non-pressure chronic ulcer of right ankle with unspecified severity; E11.51 Type 2 diabetes mellitus with diabetic peripheral angiopathy without gangrene; Z86.718 Personal history of other venous thrombosis and embolism; F41.9 Anxiety disorder, unspecified; I10 Essential (primary) hypertension; Z96.653 Presence of artificial knee joint, bilateral; Z53.8 Procedure and treatment not carried out for other reasons
CPT/HCPCS: 36415; 80053-TC; 80061-TC; 82306; 82728-TC; 82962-TC; 83540-TC; 83735-TC; 84100-TC; 84439-TC; 84443-TC; 84484-TC; 85025-TC; 85730-TC; 87081-TC; 93307-TC; A4216; A6209; A6402; J0690; J2250; J2704; J3010; J3490; J7030; J7120; J8597; Z7610

== ENCOUNTER 2017-08-07 08:30 | Outpatient (CLI) | payer MEDICARE, MEDICAID | END 2017-08-07 23:59 | disposition home health service (06) | LOC: WOU 08:30 | PROVIDERS: ATTEND Podiatrist Foot & Ankle Surgery | DX: I87.2 Venous insufficiency (chronic) (peripheral) (principal); L97.512 Non-pressure chronic ulcer of other part of right foot with fat layer exposed; M06.9 Rheumatoid arthritis, unspecified; I10 Essential (primary) hypertension; Z96.651 Presence of right artificial knee joint | CPT/HCPCS: A6402 ×2; G0463 ==

== ENCOUNTER 2017-08-12 09:11 | Outpatient (CLI) | payer MEDICARE, MEDICAID | END 2017-08-12 23:59 | disposition home health service (06) | LOC: WOU 09:11 | PROVIDERS: ATTEND Specialist | DX: I83.013 Varicose veins of right lower extremity with ulcer of ankle (principal); L97.319 Non-pressure chronic ulcer of right ankle with unspecified severity; T86.828 Other complications of skin graft (allograft) (autograft); E11.621 Type 2 diabetes mellitus with foot ulcer; I10 Essential (primary) hypertension; E78.5 Hyperlipidemia, unspecified; Z96.651 Presence of right artificial knee joint | CPT/HCPCS: A6402 ×2; G0463 ==

== ENCOUNTER 2017-08-19 09:05 | Outpatient (CLI) | payer MEDICARE, MEDICAID | END 2017-08-19 23:59 | disposition home health service (06) | LOC: WOU 09:05 | PROVIDERS: ATTEND Specialist | DX: E11.621 Type 2 diabetes mellitus with foot ulcer (principal); L97.519 Non-pressure chronic ulcer of other part of right foot with unspecified severity; T86.828 Other complications of skin graft (allograft) (autograft); I10 Essential (primary) hypertension; E78.5 Hyperlipidemia, unspecified; I83.90 Asymptomatic varicose veins of unspecified lower extremity | CPT/HCPCS: A6253; A6402; G0463 ==

== ENCOUNTER 2017-08-26 09:00 | Outpatient (CLI) | payer MEDICARE, MEDICAID | END 2017-08-26 23:59 | disposition home health service (06) | LOC: WOU 09:00 | PROVIDERS: ATTEND Podiatrist Foot & Ankle Surgery | DX: Z48.01 Encounter for change or removal of surgical wound dressing (principal); I87.2 Venous insufficiency (chronic) (peripheral); Z96.651 Presence of right artificial knee joint; L97.318 Non-pressure chronic ulcer of right ankle with other specified severity | CPT/HCPCS: A6402; G0463 ==

== ENCOUNTER 2017-09-16 09:14 | Outpatient (CLI) | payer MEDICARE, MEDICAID | END 2017-09-16 23:59 | disposition home health service (06) | LOC: WOU 09:14 | PROVIDERS: ATTEND Podiatrist Foot & Ankle Surgery | DX: E11.622 Type 2 diabetes mellitus with other skin ulcer (principal); L97.322 Non-pressure chronic ulcer of left ankle with fat layer exposed; I87.2 Venous insufficiency (chronic) (peripheral); M79.671 Pain in right foot; R60.0 Localized edema | CPT/HCPCS: A6402; G0463 ==

== ENCOUNTER 2017-09-18 09:27 | Outpatient (CLI) | payer MEDICARE, MEDICAID ==
[2017-09-18 09:43] LABS: BASOPHILS % (AUTO) 0.2 % (0.0-2.0); EOSINOPHILS # (AUTO) 0.1 /CMM (0.0-0.7); EOSINOPHILS % (AUTO) 2.8 % (0.0-6.0); HEMATOCRIT 38 % (33-45); HEMOGLOBIN 13.2 g/dL (11.5-14.8); LYMPHOCYTES # (AUTO) 0.9 /CMM (0.8-4.8); LYMPHOCYTES % (AUTO) 23.9 % (20.0-44.0); MEAN CORPUSCULAR HEMOGLOBIN 32 PG (26.0-33.0); MEAN CORPUSCULAR HGB CONC 35 g/dl (31.0-36.0); MEAN CORPUSCULAR VOLUME 93 fL (82-100); MONOCYTES # (AUTO) 0.3 /CMM (0.1-1.30); MONOCYTES % (AUTO) 8.5 % (2.0-12.0); NEUTROPHILS # (AUTO) 2.4 /CMM (1.8-8.9); NEUTROPHILS % (AUTO) 64.6 % (43.0-81.0); PLATELET COUNT (AUTO) 197 /CMM (150-450); RDW COEFFICIENT OF VARIATION 12.2 (11.5-15.0); RED BLOOD CELL COUNT(AUTO) 4.13 MIL/uL (4.0-5.2); WHITE BLOOD COUNT (AUTO) 3.8 K/uL (4.3-11.0)
[2017-09-18 09:54] LABS: ALBUMIN 3.9 g/dL (3.4-5.0)
[2017-09-18 09:57] LABS: C-REACTIVE PROTEIN < 0.2 mg/dL (0.0-0.9); PREALBUMIN 25.1 MG/DL (18.0-35.7)
== END 2017-09-18 23:59 | disposition home or self-care (01) ==
LOC: LAB 09:27
PROVIDERS: ATTEND Podiatrist Foot & Ankle Surgery
DX: L97.519 Non-pressure chronic ulcer of other part of right foot with unspecified severity (principal)
CPT/HCPCS: 36415; 82040-TC; 84134-TC; 85025-TC; 85652-TC; 86140-TC

== ENCOUNTER 2017-09-23 08:53 | Outpatient (CLI) | payer MEDICARE, MEDICAID | END 2017-09-23 23:59 | disposition home health service (06) | LOC: WOU 08:53 | PROVIDERS: ATTEND Podiatrist Foot & Ankle Surgery | DX: L03.116 Cellulitis of left lower limb (principal); E11.9 Type 2 diabetes mellitus without complications; I87.2 Venous insufficiency (chronic) (peripheral); Z96.651 Presence of right artificial knee joint; R60.0 Localized edema | CPT/HCPCS: A6402; G0463 ==

== ENCOUNTER 2017-10-21 09:17 | Outpatient (CLI) | payer MEDICARE, MEDICAID | END 2017-10-21 23:59 | disposition home health service (06) | LOC: WOU 09:17 | PROVIDERS: ATTEND Podiatrist Foot & Ankle Surgery | DX: I87.2 Venous insufficiency (chronic) (peripheral) (principal); L97.311 Non-pressure chronic ulcer of right ankle limited to breakdown of skin; L03.115 Cellulitis of right lower limb; L85.3 Xerosis cutis; L56.8 Other specified acute skin changes due to ultraviolet radiation; X32.XXXA Exposure to sunlight, initial encounter; Y92.89 Other specified places as the place of occurrence of the external cause; R60.9 Edema, unspecified; E11.9 Type 2 diabetes mellitus without complications | CPT/HCPCS: 11042; 87070-TC; 87075-TC; 87186-TC; A6402 ==

== ENCOUNTER 2017-10-28 09:04 | Outpatient (CLI) | payer MEDICARE, MEDICAID | END 2017-10-28 23:59 | disposition home health service (06) | LOC: WOU 09:04 | PROVIDERS: ATTEND Podiatrist Foot & Ankle Surgery | DX: I87.2 Venous insufficiency (chronic) (peripheral) (principal); R60.0 Localized edema; L85.3 Xerosis cutis; E11.59 Type 2 diabetes mellitus with other circulatory complications; Z96.651 Presence of right artificial knee joint | CPT/HCPCS: 29581; A6207; A6402 ==

== ENCOUNTER → 2017-11-04 | Outpatient (CLI) | payer MEDICARE, MEDICAID | END | disposition home health service (06) | LOC: WOU 09:15 | PROVIDERS: ATTEND Podiatrist Foot & Ankle Surgery | DX: I87.2 Venous insufficiency (chronic) (peripheral) (principal); L97.519 Non-pressure chronic ulcer of other part of right foot with unspecified severity; R60.9 Edema, unspecified; L85.3 Xerosis cutis; L81.9 Disorder of pigmentation, unspecified; E11.9 Type 2 diabetes mellitus without complications | CPT/HCPCS: A6207; A6402; G0463 ==

== ENCOUNTER 2017-11-11 09:20 | Outpatient (CLI) | payer MEDICARE, MEDICAID | END 2017-11-11 23:59 | disposition home health service (06) | LOC: WOU 09:20 | PROVIDERS: ATTEND Podiatrist Foot & Ankle Surgery | DX: I87.391 Chronic venous hypertension (idiopathic) with other complications of right lower extremity (principal); L90.9 Atrophic disorder of skin, unspecified; Z96.651 Presence of right artificial knee joint; E11.9 Type 2 diabetes mellitus without complications | CPT/HCPCS: 29581; A6207; A6402; G0463 ==

== ENCOUNTER 2017-11-18 09:08 | Outpatient (CLI) | payer MEDICARE, MEDICAID | END 2017-11-18 23:59 | disposition home or self-care (01) | LOC: WOU 09:08 | PROVIDERS: ATTEND Podiatrist Foot & Ankle Surgery | DX: I87.8 Other specified disorders of veins (principal); R60.0 Localized edema; L85.3 Xerosis cutis; E11.9 Type 2 diabetes mellitus without complications; Z86.31 Personal history of diabetic foot ulcer | CPT/HCPCS: 29581; A6207; A6402; G0463 ==

== ENCOUNTER 2017-11-25 08:42 | Outpatient (CLI) | payer MEDICARE, MEDICAID | END 2017-11-25 23:59 | disposition home health service (06) | LOC: WOU 08:42 | PROVIDERS: ATTEND Podiatrist Foot & Ankle Surgery | DX: I87.301 Chronic venous hypertension (idiopathic) without complications of right lower extremity (principal); E11.9 Type 2 diabetes mellitus without complications | CPT/HCPCS: G0463 ==

== ENCOUNTER 2017-12-08 11:10 | Outpatient (CLI) | payer MEDICARE, MEDICAID | END 2017-12-08 23:59 | disposition home health service (06) | LOC: WOU 11:10 | PROVIDERS: ATTEND Podiatrist Foot & Ankle Surgery | DX: I83.891 Varicose veins of right lower extremity with other complications (principal); L85.3 Xerosis cutis; E11.9 Type 2 diabetes mellitus without complications; R42 Dizziness and giddiness; H53.8 Other visual disturbances | CPT/HCPCS: 82962-TC; A6402; G0463 ==

== ENCOUNTER 2018-02-12 08:35 | Outpatient (CLI) | payer MEDICARE, MEDICAID | END 2018-02-12 23:59 | disposition home or self-care (01) | LOC: WOU 08:35 | PROVIDERS: ATTEND Podiatrist Foot & Ankle Surgery | DX: I87.311 Chronic venous hypertension (idiopathic) with ulcer of right lower extremity (principal); L97.312 Non-pressure chronic ulcer of right ankle with fat layer exposed; E11.42 Type 2 diabetes mellitus with diabetic polyneuropathy; I10 Essential (primary) hypertension; Z79.899 Other long term (current) drug therapy | CPT/HCPCS: 11042; 87070-TC; 87186-TC; A6402; Z7610 ==

== ENCOUNTER 2018-02-19 08:52 | Outpatient (CLI) | payer MEDICARE, MEDICAID | END 2018-02-19 23:59 | disposition home health service (06) | LOC: WOU 08:52 | PROVIDERS: ATTEND Podiatrist Foot & Ankle Surgery | DX: I87.2 Venous insufficiency (chronic) (peripheral) (principal); L97.312 Non-pressure chronic ulcer of right ankle with fat layer exposed; I89.0 Lymphedema, not elsewhere classified | CPT/HCPCS: 11042; A6402; Z7610 ==

== ENCOUNTER 2018-02-26 08:45 | Outpatient (CLI) | payer MEDICARE, MEDICAID | END 2018-02-26 23:59 | disposition home health service (06) | LOC: WOU 08:45 | PROVIDERS: ATTEND Podiatrist Foot & Ankle Surgery | DX: I87.2 Venous insufficiency (chronic) (peripheral) (principal); L97.312 Non-pressure chronic ulcer of right ankle with fat layer exposed; I89.0 Lymphedema, not elsewhere classified; L03.115 Cellulitis of right lower limb; Z86.718 Personal history of other venous thrombosis and embolism; E11.9 Type 2 diabetes mellitus without complications | CPT/HCPCS: 11042; A6402; Z7610 ==

== ENCOUNTER 2018-03-12 09:37 | Outpatient (CLI) | payer MEDICARE, MEDICAID | END 2018-03-12 23:59 | disposition home health service (06) | LOC: WOU 09:37 | PROVIDERS: ATTEND Podiatrist Foot & Ankle Surgery | DX: I87.311 Chronic venous hypertension (idiopathic) with ulcer of right lower extremity (principal); L97.312 Non-pressure chronic ulcer of right ankle with fat layer exposed; I89.0 Lymphedema, not elsewhere classified; T86.821 Skin graft (allograft) (autograft) failure; Z79.899 Other long term (current) drug therapy | CPT/HCPCS: 11042; A6402; Z7610 ==

== ENCOUNTER 2018-03-19 08:59 | Outpatient (CLI) | payer MEDICARE, MEDICAID | END 2018-03-19 23:59 | disposition home health service (06) | LOC: WOU 08:59 | PROVIDERS: ATTEND Podiatrist Foot & Ankle Surgery | DX: I87.2 Venous insufficiency (chronic) (peripheral) (principal); L97.312 Non-pressure chronic ulcer of right ankle with fat layer exposed; R60.0 Localized edema; L90.5 Scar conditions and fibrosis of skin; E11.9 Type 2 diabetes mellitus without complications | CPT/HCPCS: 15271; A6253; A6402; Q4133 ×2; Z7610 ==

== ENCOUNTER 2018-03-26 08:45 | Outpatient (CLI) | payer MEDICARE, MEDICAID | END 2018-03-26 23:59 | disposition home health service (06) | LOC: WOU 08:45 | PROVIDERS: ATTEND Podiatrist Foot & Ankle Surgery | DX: I83.213 Varicose veins of right lower extremity with both ulcer of ankle and inflammation (principal); L97.312 Non-pressure chronic ulcer of right ankle with fat layer exposed; E11.59 Type 2 diabetes mellitus with other circulatory complications; Z86.718 Personal history of other venous thrombosis and embolism | CPT/HCPCS: 15271; A6402; Q4133; Z7610 ==

== ENCOUNTER 2018-04-02 09:11 | Outpatient (CLI) | payer MEDICARE, MEDICAID | END 2018-04-02 23:59 | disposition home health service (06) | LOC: WOU 09:11 | PROVIDERS: ATTEND Podiatrist Foot & Ankle Surgery | DX: I87.311 Chronic venous hypertension (idiopathic) with ulcer of right lower extremity (principal); L97.312 Non-pressure chronic ulcer of right ankle with fat layer exposed; E11.9 Type 2 diabetes mellitus without complications; Z86.718 Personal history of other venous thrombosis and embolism | CPT/HCPCS: 11042; A6402; Z7610 ==

== ENCOUNTER 2018-04-09 09:18 | Outpatient (CLI) | payer MEDICARE, MEDICAID | END 2018-04-09 23:59 | disposition home health service (06) | LOC: WOU 09:18 | PROVIDERS: ATTEND Podiatrist Foot & Ankle Surgery | DX: I87.311 Chronic venous hypertension (idiopathic) with ulcer of right lower extremity (principal); L97.312 Non-pressure chronic ulcer of right ankle with fat layer exposed; Z86.718 Personal history of other venous thrombosis and embolism; E11.59 Type 2 diabetes mellitus with other circulatory complications | CPT/HCPCS: 11042; A6402; Z7610 ==

== ENCOUNTER 2018-06-11 09:20 | Outpatient (CLI) | payer MEDICARE, MEDICAID | END 2018-06-11 23:59 | disposition home health service (06) | LOC: WOU 09:20 | PROVIDERS: ATTEND Podiatrist Foot & Ankle Surgery | DX: I83.213 Varicose veins of right lower extremity with both ulcer of ankle and inflammation (principal); L97.312 Non-pressure chronic ulcer of right ankle with fat layer exposed; R60.0 Localized edema; M79.671 Pain in right foot; E11.59 Type 2 diabetes mellitus with other circulatory complications; Z86.718 Personal history of other venous thrombosis and embolism; Z79.82 Long term (current) use of aspirin; Z79.899 Other long term (current) drug therapy; L90.5 Scar conditions and fibrosis of skin; I87.8 Other specified disorders of veins | CPT/HCPCS: 11042; A6402; Z7610 ==

== ENCOUNTER 2018-06-18 09:45 | Outpatient (CLI) | payer MEDICARE, MEDICAID | END 2018-06-18 23:59 | disposition home or self-care (01) | LOC: WOU 09:45 | PROVIDERS: ATTEND Podiatrist Foot & Ankle Surgery | DX: I83.213 Varicose veins of right lower extremity with both ulcer of ankle and inflammation (principal); L97.312 Non-pressure chronic ulcer of right ankle with fat layer exposed; R60.0 Localized edema; E11.51 Type 2 diabetes mellitus with diabetic peripheral angiopathy without gangrene; Z79.82 Long term (current) use of aspirin; Z79.899 Other long term (current) drug therapy | CPT/HCPCS: 11042; A6402; Z7610 ==

== ENCOUNTER 2018-07-06 09:20 | Outpatient (CLI) | payer MEDICARE, MEDICAID | END 2018-07-06 23:59 | disposition home health service (06) | LOC: WOU 09:20 | PROVIDERS: ATTEND Podiatrist Foot & Ankle Surgery | DX: I87.2 Venous insufficiency (chronic) (peripheral) (principal); L97.312 Non-pressure chronic ulcer of right ankle with fat layer exposed; R60.0 Localized edema; M79.671 Pain in right foot; Z79.82 Long term (current) use of aspirin | CPT/HCPCS: 11042; A6402; Z7610 ==

== ENCOUNTER 2018-07-13 10:00 | Outpatient (CLI) | payer MEDICARE, MEDICAID | END 2018-07-13 23:59 | disposition home or self-care (01) | LOC: WOU 10:00 | PROVIDERS: ATTEND Podiatrist Foot & Ankle Surgery | DX: I87.2 Venous insufficiency (chronic) (peripheral) (principal); L97.312 Non-pressure chronic ulcer of right ankle with fat layer exposed; R60.0 Localized edema; M25.571 Pain in right ankle and joints of right foot; Z79.82 Long term (current) use of aspirin | CPT/HCPCS: 11042; A6402; Z7610 ==

== ENCOUNTER 2018-07-23 09:20 | Outpatient (CLI) | payer MEDICARE, MEDICAID | END 2018-07-23 23:59 | disposition home or self-care (01) | LOC: WOU 09:20 | PROVIDERS: ATTEND Podiatrist Foot & Ankle Surgery | DX: I83.213 Varicose veins of right lower extremity with both ulcer of ankle and inflammation (principal); L97.312 Non-pressure chronic ulcer of right ankle with fat layer exposed; I83.891 Varicose veins of right lower extremity with other complications; E11.9 Type 2 diabetes mellitus without complications; Z86.718 Personal history of other venous thrombosis and embolism; Z79.82 Long term (current) use of aspirin | CPT/HCPCS: 11042; A6402; Z7610 ==

== ENCOUNTER 2018-07-30 09:00 | Outpatient (CLI) | payer MEDICARE, MEDICAID | END 2018-07-30 23:59 | disposition home or self-care (01) | LOC: WOU 09:00 | PROVIDERS: ATTEND Podiatrist Foot & Ankle Surgery | DX: I83.213 Varicose veins of right lower extremity with both ulcer of ankle and inflammation (principal); L97.312 Non-pressure chronic ulcer of right ankle with fat layer exposed; E11.42 Type 2 diabetes mellitus with diabetic polyneuropathy; L03.115 Cellulitis of right lower limb; I80.8 Phlebitis and thrombophlebitis of other sites; Z79.82 Long term (current) use of aspirin; Z79.84 Long term (current) use of oral hypoglycemic drugs; E11.59 Type 2 diabetes mellitus with other circulatory complications | CPT/HCPCS: 11042; 87070-TC; A6402 ==

== ENCOUNTER 2018-08-06 09:22 | Outpatient (CLI) | payer MEDICARE, MEDICAID | END 2018-08-06 23:59 | disposition home or self-care (01) | LOC: WOU 09:22 | PROVIDERS: ATTEND Podiatrist Foot & Ankle Surgery | DX: I83.213 Varicose veins of right lower extremity with both ulcer of ankle and inflammation (principal); L97.312 Non-pressure chronic ulcer of right ankle with fat layer exposed; R60.0 Localized edema; Z79.82 Long term (current) use of aspirin; Z79.899 Other long term (current) drug therapy; L90.5 Scar conditions and fibrosis of skin; E11.9 Type 2 diabetes mellitus without complications; Z79.84 Long term (current) use of oral hypoglycemic drugs | CPT/HCPCS: 11042; A6402 ==

== ENCOUNTER 2018-08-17 09:15 | Outpatient (CLI) | payer MEDICARE, MEDICAID | END 2018-08-17 23:59 | disposition home or self-care (01) | LOC: WOU 09:15 | PROVIDERS: ATTEND Podiatrist Foot & Ankle Surgery | DX: I87.311 Chronic venous hypertension (idiopathic) with ulcer of right lower extremity (principal); L97.312 Non-pressure chronic ulcer of right ankle with fat layer exposed; E11.9 Type 2 diabetes mellitus without complications; I10 Essential (primary) hypertension; Z79.82 Long term (current) use of aspirin | CPT/HCPCS: 11042; A6402; G0463 ==

== ENCOUNTER 2018-08-27 08:25 | Outpatient (CLI) | payer MEDICARE, MEDICAID | END 2018-08-27 23:59 | disposition home health service (06) | LOC: WOU 08:25 | PROVIDERS: ATTEND Podiatrist Foot & Ankle Surgery | DX: I83.013 Varicose veins of right lower extremity with ulcer of ankle (principal); L97.312 Non-pressure chronic ulcer of right ankle with fat layer exposed; L97.818 Non-pressure chronic ulcer of other part of right lower leg with other specified severity; E11.9 Type 2 diabetes mellitus without complications; Z79.82 Long term (current) use of aspirin; Z79.84 Long term (current) use of oral hypoglycemic drugs | CPT/HCPCS: 11042; A6207; A6402 ==

== ENCOUNTER 2018-09-03 09:00 | Outpatient (CLI) | payer MEDICARE, MEDICAID | END 2018-09-03 23:59 | disposition home health service (06) | LOC: WOU 09:00 | PROVIDERS: ATTEND Podiatrist Foot & Ankle Surgery | DX: I83.213 Varicose veins of right lower extremity with both ulcer of ankle and inflammation (principal); L97.312 Non-pressure chronic ulcer of right ankle with fat layer exposed; I83.891 Varicose veins of right lower extremity with other complications; E11.9 Type 2 diabetes mellitus without complications; Z79.82 Long term (current) use of aspirin; Z79.899 Other long term (current) drug therapy | CPT/HCPCS: 11042; A6402 ==

== ENCOUNTER 2018-09-10 09:07 | Outpatient (CLI) | payer MEDICARE, MEDICAID | END 2018-09-10 23:59 | disposition home health service (06) | LOC: WOU 09:07 | PROVIDERS: ATTEND Podiatrist Foot & Ankle Surgery | DX: I83.213 Varicose veins of right lower extremity with both ulcer of ankle and inflammation (principal); L97.312 Non-pressure chronic ulcer of right ankle with fat layer exposed; Z79.82 Long term (current) use of aspirin; E11.9 Type 2 diabetes mellitus without complications; Z79.84 Long term (current) use of oral hypoglycemic drugs; R60.0 Localized edema | CPT/HCPCS: 11042; A6402 ==

== ENCOUNTER 2018-09-17 09:22 | Outpatient (CLI) | payer MEDICARE, MEDICAID | END 2018-09-17 23:59 | disposition home health service (06) | LOC: WOU 09:22 | PROVIDERS: ATTEND Podiatrist Foot & Ankle Surgery | DX: I87.311 Chronic venous hypertension (idiopathic) with ulcer of right lower extremity (principal); L97.312 Non-pressure chronic ulcer of right ankle with fat layer exposed; R60.0 Localized edema; Z79.82 Long term (current) use of aspirin; E11.9 Type 2 diabetes mellitus without complications; I10 Essential (primary) hypertension | CPT/HCPCS: 11042; A6402 ==

== ENCOUNTER 2018-09-20 08:40 | Outpatient (CLI) | payer MEDICARE, MEDICAID ==
[2018-09-22 19:11] LABS: CCP IgG/IgA AB 5 units (0-19)
== END 2018-09-20 23:59 | disposition home or self-care (01) ==
LOC: LAB 08:40
PROVIDERS: ATTEND Podiatrist Foot & Ankle Surgery
DX: T14.8XXA Other injury of unspecified body region, initial encounter (principal); X58.XXXA Exposure to other specified factors, initial encounter; Y93.89 Activity, other specified; Y92.89 Other specified places as the place of occurrence of the external cause; Y99.8 Other external cause status
CPT/HCPCS: 36415; 85652-TC; 86140-TC; 86200; 86431-TC

== ENCOUNTER 2018-09-24 09:10 | Outpatient (CLI) | payer MEDICARE, MEDICAID | END 2018-09-24 23:59 | disposition home health service (06) | LOC: WOU 09:10 | PROVIDERS: ATTEND Podiatrist Foot & Ankle Surgery | PROC: 0YB Anatomical Regions, Lower Extremities, Excision (ICD-10-PCS; principal; 2018-09-24) | DX: I83.213 Varicose veins of right lower extremity with both ulcer of ankle and inflammation (principal); L97.312 Non-pressure chronic ulcer of right ankle with fat layer exposed; L03.115 Cellulitis of right lower limb; L90.9 Atrophic disorder of skin, unspecified | CPT/HCPCS: 11043; A6402 ==

== ENCOUNTER 2018-10-22 09:00 | Outpatient (CLI) | payer MEDICARE, MEDICAID | END 2018-10-22 23:59 | disposition home or self-care (01) | LOC: WOU 09:00 | PROVIDERS: ATTEND Podiatrist Foot & Ankle Surgery | DX: I87.311 Chronic venous hypertension (idiopathic) with ulcer of right lower extremity (principal); I83.013 Varicose veins of right lower extremity with ulcer of ankle; L97.312 Non-pressure chronic ulcer of right ankle with fat layer exposed; M06.9 Rheumatoid arthritis, unspecified; I10 Essential (primary) hypertension; E78.5 Hyperlipidemia, unspecified; E11.9 Type 2 diabetes mellitus without complications; L90.5 Scar conditions and fibrosis of skin | CPT/HCPCS: 11042; A6402 ==

== ENCOUNTER 2018-11-05 09:00 | Outpatient (CLI) | payer MEDICARE, MEDICAID | END 2018-11-05 23:59 | disposition home or self-care (01) | LOC: WOU 09:00 | PROVIDERS: ATTEND Podiatrist Foot & Ankle Surgery | DX: I83.013 Varicose veins of right lower extremity with ulcer of ankle (principal); L97.312 Non-pressure chronic ulcer of right ankle with fat layer exposed; L90.9 Atrophic disorder of skin, unspecified; Z79.899 Other long term (current) drug therapy | CPT/HCPCS: 11042; A6402 ==

== ENCOUNTER 2018-11-19 09:30 | Outpatient (CLI) | payer MEDICARE, MEDICAID | END 2018-11-19 23:59 | disposition home or self-care (01) | LOC: WOU 09:30 | PROVIDERS: ATTEND Podiatrist Foot & Ankle Surgery | DX: I83.213 Varicose veins of right lower extremity with both ulcer of ankle and inflammation (principal); L97.312 Non-pressure chronic ulcer of right ankle with fat layer exposed; L90.9 Atrophic disorder of skin, unspecified; Z79.82 Long term (current) use of aspirin; Z79.899 Other long term (current) drug therapy; E11.9 Type 2 diabetes mellitus without complications | CPT/HCPCS: 11042; A6402 ==

== ENCOUNTER 2018-12-10 08:40 | Outpatient (CLI) | payer MEDICARE, MEDICAID | END 2018-12-10 23:59 | disposition home or self-care (01) | LOC: WOU 08:40 | PROVIDERS: ATTEND Podiatrist Foot & Ankle Surgery | DX: I83.213 Varicose veins of right lower extremity with both ulcer of ankle and inflammation (principal); L97.312 Non-pressure chronic ulcer of right ankle with fat layer exposed; I83.811 Varicose veins of right lower extremity with pain; R60.0 Localized edema; L90.5 Scar conditions and fibrosis of skin | CPT/HCPCS: 11042; 87070; 87075; 87077; 87186 ×2; A6402 ==

== ENCOUNTER 2018-12-17 08:45 | Outpatient (CLI) | payer MEDICARE, MEDICAID | END 2018-12-17 23:59 | disposition home or self-care (01) | LOC: WOU 08:45 | PROVIDERS: ATTEND Podiatrist Foot & Ankle Surgery | DX: I83.213 Varicose veins of right lower extremity with both ulcer of ankle and inflammation (principal); L97.312 Non-pressure chronic ulcer of right ankle with fat layer exposed; I87.2 Venous insufficiency (chronic) (peripheral); I10 Essential (primary) hypertension; E78.5 Hyperlipidemia, unspecified; E11.9 Type 2 diabetes mellitus without complications; Z79.82 Long term (current) use of aspirin; Z79.899 Other long term (current) drug therapy | CPT/HCPCS: 11042; A6402 ==

== ENCOUNTER 2019-01-07 09:30 | Outpatient (CLI) | payer MEDICARE, MEDICAID | END 2019-01-07 23:59 | disposition home or self-care (01) | LOC: WOU 09:30 | PROVIDERS: ATTEND Podiatrist Foot & Ankle Surgery | DX: I83.013 Varicose veins of right lower extremity with ulcer of ankle (principal); L97.312 Non-pressure chronic ulcer of right ankle with fat layer exposed; I83.891 Varicose veins of right lower extremity with other complications; Z79.82 Long term (current) use of aspirin; E11.9 Type 2 diabetes mellitus without complications | CPT/HCPCS: 11042; A6402 ==

== ENCOUNTER 2019-01-21 09:28 | Outpatient (CLI) | payer MEDICARE, MEDICAID | END 2019-01-21 23:59 | disposition home or self-care (01) | LOC: WOU 09:28 | PROVIDERS: ATTEND Podiatrist Foot & Ankle Surgery | DX: I83.213 Varicose veins of right lower extremity with both ulcer of ankle and inflammation (principal); L97.312 Non-pressure chronic ulcer of right ankle with fat layer exposed; I83.891 Varicose veins of right lower extremity with other complications; M79.672 Pain in left foot | CPT/HCPCS: 11042 ==

== ENCOUNTER 2019-02-04 09:00 | Outpatient (CLI) | payer MEDICARE, MEDICAID | END 2019-02-04 23:59 | disposition home or self-care (01) | LOC: WOU 09:00 | PROVIDERS: ATTEND Podiatrist Foot & Ankle Surgery | DX: I83.213 Varicose veins of right lower extremity with both ulcer of ankle and inflammation (principal); L97.312 Non-pressure chronic ulcer of right ankle with fat layer exposed; R60.0 Localized edema; E11.9 Type 2 diabetes mellitus without complications; K21.9 Gastro-esophageal reflux disease without esophagitis; I10 Essential (primary) hypertension; E78.5 Hyperlipidemia, unspecified; Z83.3 Family history of diabetes mellitus; Z79.82 Long term (current) use of aspirin; Z79.899 Other long term (current) drug therapy | CPT/HCPCS: 11042 ==

== ENCOUNTER 2019-02-18 09:25 | Outpatient (CLI) | payer MEDICARE, MEDICAID | END 2019-02-18 23:59 | disposition home or self-care (01) | LOC: WOU 09:25 | PROVIDERS: ATTEND Podiatrist Foot & Ankle Surgery | DX: I83.215 Varicose veins of right lower extremity with both ulcer other part of foot and inflammation (principal); L97.512 Non-pressure chronic ulcer of other part of right foot with fat layer exposed; L90.5 Scar conditions and fibrosis of skin; E11.9 Type 2 diabetes mellitus without complications; Z79.82 Long term (current) use of aspirin | CPT/HCPCS: 11042 ==

== ENCOUNTER 2019-03-11 09:10 | Outpatient (CLI) | payer MEDICARE, MEDICAID | END 2019-03-11 23:59 | disposition home or self-care (01) | LOC: WOU 09:10 | PROVIDERS: ATTEND Podiatrist Foot & Ankle Surgery | DX: I83.213 Varicose veins of right lower extremity with both ulcer of ankle and inflammation (principal); L97.312 Non-pressure chronic ulcer of right ankle with fat layer exposed; I83.899 Varicose veins of unspecified lower extremity with other complications; E11.9 Type 2 diabetes mellitus without complications; Z79.82 Long term (current) use of aspirin; Z79.899 Other long term (current) drug therapy | CPT/HCPCS: 11042 ==

== ENCOUNTER 2019-04-01 09:20 | Outpatient (CLI) | payer MEDICARE, MEDICAID | END 2019-04-01 23:59 | disposition home or self-care (01) | LOC: WOU 09:20 | PROVIDERS: ATTEND Podiatrist Foot & Ankle Surgery | DX: I83.213 Varicose veins of right lower extremity with both ulcer of ankle and inflammation (principal); L97.312 Non-pressure chronic ulcer of right ankle with fat layer exposed; E11.9 Type 2 diabetes mellitus without complications; L97.519 Non-pressure chronic ulcer of other part of right foot with unspecified severity; R60.0 Localized edema; L30.9 Dermatitis, unspecified; Z79.82 Long term (current) use of aspirin | CPT/HCPCS: 11042; 82962-TC ==

== ENCOUNTER 2019-05-06 09:00 | Outpatient (CLI) | payer MEDICARE, MEDICAID | END 2019-05-06 23:59 | disposition home or self-care (01) | LOC: WOU 09:00 | PROVIDERS: ATTEND Podiatrist Foot & Ankle Surgery | DX: I83.213 Varicose veins of right lower extremity with both ulcer of ankle and inflammation (principal); L97.312 Non-pressure chronic ulcer of right ankle with fat layer exposed; E11.9 Type 2 diabetes mellitus without complications; L90.9 Atrophic disorder of skin, unspecified; I87.8 Other specified disorders of veins; Z79.82 Long term (current) use of aspirin | CPT/HCPCS: 11042 ==

== ENCOUNTER 2019-05-20 09:10 | Outpatient (CLI) | payer MEDICARE, MEDICAID | END 2019-05-20 23:59 | disposition home or self-care (01) | LOC: WOU 09:10 | PROVIDERS: ATTEND Podiatrist Foot & Ankle Surgery | DX: I83.213 Varicose veins of right lower extremity with both ulcer of ankle and inflammation (principal); L97.312 Non-pressure chronic ulcer of right ankle with fat layer exposed; I83.891 Varicose veins of right lower extremity with other complications; E11.9 Type 2 diabetes mellitus without complications | CPT/HCPCS: 11042 ==

== ENCOUNTER → 2019-06-03 | Outpatient (CLI) | payer MEDICARE, MEDICAID | END | disposition home or self-care (01) | LOC: WOU 09:30 | PROVIDERS: ATTEND Podiatrist Foot & Ankle Surgery | DX: I83.013 Varicose veins of right lower extremity with ulcer of ankle (principal); L97.312 Non-pressure chronic ulcer of right ankle with fat layer exposed; M79.671 Pain in right foot | CPT/HCPCS: 11042 ==

== ENCOUNTER 2019-06-17 09:40 | Outpatient (CLI) | payer MEDICARE, MEDICAID | END 2019-06-17 23:59 | disposition home or self-care (01) | LOC: WOU 09:40 | PROVIDERS: ATTEND Podiatrist Foot & Ankle Surgery | DX: I83.213 Varicose veins of right lower extremity with both ulcer of ankle and inflammation (principal); L97.312 Non-pressure chronic ulcer of right ankle with fat layer exposed; E11.9 Type 2 diabetes mellitus without complications; Z79.82 Long term (current) use of aspirin | CPT/HCPCS: 11042 ==

== ENCOUNTER 2019-07-08 09:20 | Outpatient (CLI) | payer MEDICARE, MEDICAID | END 2019-07-08 23:59 | disposition home or self-care (01) | LOC: WOU 09:20 | PROVIDERS: ATTEND Podiatrist Foot & Ankle Surgery | DX: I83.213 Varicose veins of right lower extremity with both ulcer of ankle and inflammation (principal); L97.312 Non-pressure chronic ulcer of right ankle with fat layer exposed; I83.891 Varicose veins of right lower extremity with other complications; R60.0 Localized edema; E11.9 Type 2 diabetes mellitus without complications; Z79.84 Long term (current) use of oral hypoglycemic drugs | CPT/HCPCS: 11042 ==

== ENCOUNTER 2019-07-22 09:20 | Outpatient (CLI) | payer MEDICARE, MEDICAID | END 2019-07-22 23:59 | disposition home or self-care (01) | LOC: WOU 09:20 | PROVIDERS: ATTEND Podiatrist Foot & Ankle Surgery | DX: I83.213 Varicose veins of right lower extremity with both ulcer of ankle and inflammation (principal); L97.312 Non-pressure chronic ulcer of right ankle with fat layer exposed; Z86.39 Personal history of other endocrine, nutritional and metabolic disease | CPT/HCPCS: 11042 ==

== ENCOUNTER 2019-08-26 08:50 | Outpatient (CLI) | payer MEDICARE, MEDICAID | END 2019-08-26 23:59 | disposition home or self-care (01) | LOC: WOU 08:50 | PROVIDERS: ATTEND Podiatrist Foot & Ankle Surgery | DX: I83.213 Varicose veins of right lower extremity with both ulcer of ankle and inflammation (principal); L97.312 Non-pressure chronic ulcer of right ankle with fat layer exposed; L90.9 Atrophic disorder of skin, unspecified; R60.0 Localized edema; Z79.82 Long term (current) use of aspirin; Z79.899 Other long term (current) drug therapy; E11.9 Type 2 diabetes mellitus without complications; Z79.84 Long term (current) use of oral hypoglycemic drugs | CPT/HCPCS: 11042 ==

== ENCOUNTER 2020-02-24 08:05 | Outpatient (CLI) | payer MEDICARE, MEDICAID ==
[2020-02-24] MEDS ORDERED: LIDOCAINE SOLN 4% 50 ML BOTTLE ONE (08:25)
[2020-02-24] MEDS ORDERED: MUPIROCIN 2% CREAM 15 GM TUBE TP ONE (08:51)
== END 2020-02-24 23:59 | disposition home or self-care (01) ==
LOC: WOU 08:05
PROVIDERS: ATTEND Podiatrist Foot & Ankle Surgery
DX: E11.622 Type 2 diabetes mellitus with other skin ulcer (principal); L97.312 Non-pressure chronic ulcer of right ankle with fat layer exposed; L03.115 Cellulitis of right lower limb; I87.2 Venous insufficiency (chronic) (peripheral); R60.0 Localized edema; Z79.82 Long term (current) use of aspirin
CPT/HCPCS: G0463

== ENCOUNTER 2020-06-05 09:40 | Outpatient (CLI) | payer MEDICARE, MEDICAID ==
[2020-06-05] MEDS ORDERED: COLLAGENASE 5 GM TUBE UD TP ONE (10:56)
[2020-06-05] MEDS ORDERED: HYDROCORTISONE 1% CREAM 28.35 GM TUBE TP ONE (10:57)
== END 2020-06-05 23:59 | disposition home or self-care (01) ==
LOC: WOU 09:40
PROVIDERS: ATTEND Podiatrist Foot & Ankle Surgery
DX: I87.311 Chronic venous hypertension (idiopathic) with ulcer of right lower extremity (principal); L97.312 Non-pressure chronic ulcer of right ankle with fat layer exposed; L03.115 Cellulitis of right lower limb; E11.9 Type 2 diabetes mellitus without complications; I87.2 Venous insufficiency (chronic) (peripheral); R60.0 Localized edema; Z79.82 Long term (current) use of aspirin
CPT/HCPCS: G0463

== ENCOUNTER 2020-07-10 08:30 | Outpatient (CLI) | payer MEDICARE, MEDICAID ==
[2020-07-10] MEDS ORDERED: LIDOCAINE SOLN 4% 50 ML BOTTLE ONE (08:33)
[2020-07-10] MEDS ORDERED: MUPIROCIN 2% CREAM 15 GM TUBE TP ONE (09:06)
== END 2020-07-10 23:59 | disposition home or self-care (01) ==
LOC: WOU 08:30
PROVIDERS: ATTEND Podiatrist Foot & Ankle Surgery
DX: I87.311 Chronic venous hypertension (idiopathic) with ulcer of right lower extremity (principal); L97.312 Non-pressure chronic ulcer of right ankle with fat layer exposed; E11.9 Type 2 diabetes mellitus without complications; I87.2 Venous insufficiency (chronic) (peripheral); R60.0 Localized edema; Z79.82 Long term (current) use of aspirin
CPT/HCPCS: 11042

== ENCOUNTER 2020-07-17 08:15 | Outpatient (CLI) | payer MEDICARE, MEDICAID ==
[2020-07-17] MEDS ORDERED: LIDOCAINE SOLN 4% 50 ML BOTTLE ONE (08:22)
== END 2020-07-17 23:59 | disposition home or self-care (01) ==
LOC: WOU 08:15
PROVIDERS: ATTEND Podiatrist Foot & Ankle Surgery
DX: I87.311 Chronic venous hypertension (idiopathic) with ulcer of right lower extremity (principal); L97.312 Non-pressure chronic ulcer of right ankle with fat layer exposed; I87.2 Venous insufficiency (chronic) (peripheral); E11.51 Type 2 diabetes mellitus with diabetic peripheral angiopathy without gangrene; Z79.82 Long term (current) use of aspirin; R60.0 Localized edema
CPT/HCPCS: 11042

== ENCOUNTER 2020-07-24 08:25 | Outpatient (CLI) | payer MEDICARE, MEDICAID ==
[2020-07-24] MEDS ORDERED: COLLAGENASE 5 GM TUBE UD TP ONE (08:58)
[2020-07-24] MEDS ORDERED: HYDROCORTISONE 1% CREAM 28.35 GM TUBE TP ONE (09:21)
[2020-07-24 10:23] LABS: BASOPHILS % (AUTO) 0.4 % (0.0-2.0); EOSINOPHILS % (AUTO) 2.6 % (0.0-6.0); HEMATOCRIT 41 % (33-45); HEMOGLOBIN 13.9 g/dL (11.5-14.8); LYMPHOCYTES # (AUTO) 0.8 /CMM (0.8-4.8); LYMPHOCYTES % (AUTO) 17.1 % (20.0-44.0); MEAN CORPUSCULAR HGB CONC 34 g/dl (31.0-36.0); MEAN CORPUSCULAR VOLUME 96 fL (82-100); MONOCYTES # (AUTO) 0.5 /CMM (0.1-1.30); MONOCYTES % (AUTO) 10.1 % (2.0-12.0); NEUTROPHILS # (AUTO) 3.3 /CMM (1.8-8.9); NEUTROPHILS % (AUTO) 69.8 % (43.0-81.0); PLATELET COUNT (AUTO) 211 /CMM (150-450); RED BLOOD CELL COUNT(AUTO) 4.29 MIL/uL (4.0-5.2); WHITE BLOOD COUNT (AUTO) 4.7 K/uL (4.3-11.0)
[2020-07-24 10:36] LABS: ALBUMIN 3.9 g/dL (3.4-5.0); C-REACTIVE PROTEIN 1.1 mg/dL (0.0-0.9); CALCIUM, SERUM 9.2 mg/dL (8.5-10.1); CREATININE 0.7 mg/dL (0.6-1.3); POTASSIUM 4.1 mmol/L (3.5-5.1)
== END 2020-07-24 23:59 | disposition home or self-care (01) ==
LOC: WOU 08:25
PROVIDERS: ATTEND Podiatrist Foot & Ankle Surgery
DX: I87.311 Chronic venous hypertension (idiopathic) with ulcer of right lower extremity (principal); L97.312 Non-pressure chronic ulcer of right ankle with fat layer exposed; E11.9 Type 2 diabetes mellitus without complications; I87.2 Venous insufficiency (chronic) (peripheral); R60.0 Localized edema; M79.604 Pain in right leg; Z79.82 Long term (current) use of aspirin
CPT/HCPCS: 11042; 36415; 80048; 82040; 83036; 85025; 85652; 86140; 87070; 87075; A6253

== ENCOUNTER 2020-07-24 09:24 | Outpatient (CLI) | payer MEDICARE, MEDICAID | END 2020-07-24 23:59 | disposition home or self-care (01) | LOC: MSC 09:24 | PROVIDERS: ATTEND Anesthesiology | DX: L97.513 Non-pressure chronic ulcer of other part of right foot with necrosis of muscle (principal); E11.40 Type 2 diabetes mellitus with diabetic neuropathy, unspecified; G89.4 Chronic pain syndrome; M46.96 Unspecified inflammatory spondylopathy, lumbar region; M54.16 Radiculopathy, lumbar region; M40.299 Other kyphosis, site unspecified; M62.830 Muscle spasm of back; Z79.899 Other long term (current) drug therapy ==

== ENCOUNTER 2020-08-03 09:40 | Outpatient (CLI) | payer MEDICARE, OTHER | END 2020-08-03 23:59 | disposition home or self-care (01) | LOC: WOU 09:40 | PROVIDERS: ATTEND Podiatrist Foot & Ankle Surgery | DX: I87.311 Chronic venous hypertension (idiopathic) with ulcer of right lower extremity (principal); L97.312 Non-pressure chronic ulcer of right ankle with fat layer exposed; R60.0 Localized edema; I87.2 Venous insufficiency (chronic) (peripheral); E11.9 Type 2 diabetes mellitus without complications; Z79.82 Long term (current) use of aspirin | CPT/HCPCS: 11042 ==

== ENCOUNTER 2020-08-10 08:00 | Outpatient (CLI) | payer MEDICARE, OTHER ==
[2020-08-10] MEDS ORDERED: LIDOCAINE SOLN 4% 50 ML BOTTLE ONE (08:13)
[2020-08-10] MEDS ORDERED: HYDROCORTISONE 1% CREAM 28.35 GM TUBE TP ONE (08:59)
== END 2020-08-10 23:59 | disposition home or self-care (01) ==
LOC: WOU 08:00
PROVIDERS: ATTEND Podiatrist Foot & Ankle Surgery
DX: I87.311 Chronic venous hypertension (idiopathic) with ulcer of right lower extremity (principal); L97.312 Non-pressure chronic ulcer of right ankle with fat layer exposed; I87.2 Venous insufficiency (chronic) (peripheral); R60.0 Localized edema; E11.9 Type 2 diabetes mellitus without complications; Z79.82 Long term (current) use of aspirin; M79.604 Pain in right leg
CPT/HCPCS: 11042

== ENCOUNTER 2020-08-31 08:20 | Outpatient (CLI) | payer MEDICARE, OTHER ==
[2020-08-31] MEDS ORDERED: LIDOCAINE SOLN 4% 50 ML BOTTLE ONE (08:44)
[2020-08-31] MEDS ORDERED: MUPIROCIN 2% CREAM 15 GM TUBE TP ONE (09:24)
== END 2020-08-31 23:59 | disposition home or self-care (01) ==
LOC: WOU 08:20
PROVIDERS: ATTEND Podiatrist Foot & Ankle Surgery
DX: I87.311 Chronic venous hypertension (idiopathic) with ulcer of right lower extremity (principal); L97.312 Non-pressure chronic ulcer of right ankle with fat layer exposed; I87.2 Venous insufficiency (chronic) (peripheral); E11.9 Type 2 diabetes mellitus without complications; M79.604 Pain in right leg; R60.0 Localized edema; Z79.82 Long term (current) use of aspirin
CPT/HCPCS: 11042

== ENCOUNTER 2020-09-07 08:30 | Outpatient (CLI) | payer MEDICARE, OTHER ==
[2020-09-07] MEDS ORDERED: LIDOCAINE SOLN 4% 50 ML BOTTLE ONE (08:32)
== END 2020-09-07 23:59 | disposition home or self-care (01) ==
LOC: WOU 08:30
PROVIDERS: ATTEND Podiatrist Foot & Ankle Surgery
DX: I87.311 Chronic venous hypertension (idiopathic) with ulcer of right lower extremity (principal); L97.312 Non-pressure chronic ulcer of right ankle with fat layer exposed; E11.9 Type 2 diabetes mellitus without complications; I87.2 Venous insufficiency (chronic) (peripheral); R60.0 Localized edema; M79.604 Pain in right leg; Z79.82 Long term (current) use of aspirin
CPT/HCPCS: 11042

== ENCOUNTER → 2020-09-18 | Outpatient (CLI) | payer MEDICARE, OTHER | END | disposition home or self-care (01) | LOC: MSC 10:50 | PROVIDERS: ATTEND Anesthesiology | DX: E11.40 Type 2 diabetes mellitus with diabetic neuropathy, unspecified (principal); G89.4 Chronic pain syndrome; Z74.09 Other reduced mobility; E11.621 Type 2 diabetes mellitus with foot ulcer; L97.513 Non-pressure chronic ulcer of other part of right foot with necrosis of muscle; M62.830 Muscle spasm of back; M46.86 Other specified inflammatory spondylopathies, lumbar region; M40.299 Other kyphosis, site unspecified; M54.16 Radiculopathy, lumbar region; Z79.899 Other long term (current) drug therapy ==

== ENCOUNTER 2020-09-19 12:40 | Outpatient (CLI) | payer MEDICARE, OTHER ==
[2020-09-19] MEDS ORDERED: MUPIROCIN 2% CREAM 15 GM TUBE TP ONE (13:15)
== END 2020-09-19 23:59 | disposition home or self-care (01) ==
LOC: WOU 12:40
PROVIDERS: ATTEND Podiatrist Foot & Ankle Surgery
DX: I87.311 Chronic venous hypertension (idiopathic) with ulcer of right lower extremity (principal); L97.312 Non-pressure chronic ulcer of right ankle with fat layer exposed; E11.9 Type 2 diabetes mellitus without complications; R60.0 Localized edema; M79.604 Pain in right leg; I10 Essential (primary) hypertension; Z79.82 Long term (current) use of aspirin
CPT/HCPCS: 11042

== ENCOUNTER 2020-09-28 08:45 | Outpatient (CLI) | payer MEDICARE, OTHER ==
[2020-09-28] MEDS ORDERED: LIDOCAINE SOLN 4% 50 ML BOTTLE ONE (09:02)
== END 2020-09-28 23:59 | disposition home or self-care (01) ==
LOC: WOU 08:45
PROVIDERS: ATTEND Podiatrist Foot & Ankle Surgery
DX: I87.311 Chronic venous hypertension (idiopathic) with ulcer of right lower extremity (principal); L97.312 Non-pressure chronic ulcer of right ankle with fat layer exposed; E11.9 Type 2 diabetes mellitus without complications; I87.2 Venous insufficiency (chronic) (peripheral); R60.0 Localized edema; M79.604 Pain in right leg; Z79.82 Long term (current) use of aspirin
CPT/HCPCS: 11042

== ENCOUNTER 2020-10-12 09:00 | Outpatient (CLI) | payer MEDICARE, OTHER ==
[2020-10-12] MEDS ORDERED: GENTAMICIN 0.1% CREAM 15 GM TUBE ONE (09:45)
[2020-10-12] MEDS ORDERED: MUPIROCIN 2% CREAM 15 GM TUBE TP ONE (09:46)
== END 2020-10-12 23:59 | disposition home or self-care (01) ==
LOC: WOU 09:00
PROVIDERS: ATTEND Podiatrist Foot & Ankle Surgery
DX: I87.311 Chronic venous hypertension (idiopathic) with ulcer of right lower extremity (principal); L97.312 Non-pressure chronic ulcer of right ankle with fat layer exposed; E11.9 Type 2 diabetes mellitus without complications; I87.2 Venous insufficiency (chronic) (peripheral); M79.604 Pain in right leg; R60.0 Localized edema; I10 Essential (primary) hypertension; Z79.82 Long term (current) use of aspirin
CPT/HCPCS: 11042

== ENCOUNTER 2020-11-14 12:45 | Outpatient (CLI) | payer MEDICARE, OTHER | END 2020-11-14 23:59 | disposition home or self-care (01) | LOC: WOU 12:45 | PROVIDERS: ATTEND Podiatrist Foot & Ankle Surgery | DX: I87.311 Chronic venous hypertension (idiopathic) with ulcer of right lower extremity (principal); L97.312 Non-pressure chronic ulcer of right ankle with fat layer exposed; E11.9 Type 2 diabetes mellitus without complications; I87.2 Venous insufficiency (chronic) (peripheral); R60.0 Localized edema; M79.604 Pain in right leg; Z79.82 Long term (current) use of aspirin | CPT/HCPCS: 11042 ==

== ENCOUNTER 2020-11-21 12:45 | Outpatient (CLI) | payer MEDICARE, OTHER ==
[2020-11-21] MEDS ORDERED: LIDOCAINE SOLN 4% 50 ML BOTTLE ONE (13:12)
== END 2020-11-21 23:59 | disposition home or self-care (01) ==
LOC: WOU 12:45
PROVIDERS: ATTEND Podiatrist Foot & Ankle Surgery
DX: I87.311 Chronic venous hypertension (idiopathic) with ulcer of right lower extremity (principal); L97.312 Non-pressure chronic ulcer of right ankle with fat layer exposed; I87.2 Venous insufficiency (chronic) (peripheral); M79.604 Pain in right leg; E11.9 Type 2 diabetes mellitus without complications; R60.0 Localized edema; Z79.82 Long term (current) use of aspirin
CPT/HCPCS: 11042

== ENCOUNTER 2020-12-07 08:45 | Outpatient (CLI) | payer MEDICARE, OTHER ==
[2020-12-07] MEDS ORDERED: LIDOCAINE SOLN 4% 50 ML BOTTLE ONE (08:53)
== END 2020-12-07 23:59 | disposition home or self-care (01) ==
LOC: WOU 08:45
PROVIDERS: ATTEND Podiatrist Foot & Ankle Surgery
DX: I87.311 Chronic venous hypertension (idiopathic) with ulcer of right lower extremity (principal); L97.312 Non-pressure chronic ulcer of right ankle with fat layer exposed; I87.2 Venous insufficiency (chronic) (peripheral); R60.0 Localized edema; E11.9 Type 2 diabetes mellitus without complications; M79.604 Pain in right leg; Z79.82 Long term (current) use of aspirin
CPT/HCPCS: C5271; Q4117 ×2

== ENCOUNTER 2020-12-18 08:35 | Outpatient (CLI) | payer MEDICARE, OTHER | END 2020-12-18 23:59 | disposition home or self-care (01) | LOC: WOU 08:35 | PROVIDERS: ATTEND Podiatrist Foot & Ankle Surgery | DX: I87.311 Chronic venous hypertension (idiopathic) with ulcer of right lower extremity (principal); L97.312 Non-pressure chronic ulcer of right ankle with fat layer exposed; R60.0 Localized edema; I87.2 Venous insufficiency (chronic) (peripheral); L84 Corns and callosities; E11.9 Type 2 diabetes mellitus without complications; I10 Essential (primary) hypertension; M79.604 Pain in right leg; Z79.82 Long term (current) use of aspirin | CPT/HCPCS: 11042 ==

== ENCOUNTER 2020-12-28 08:35 | Outpatient (CLI) | payer MEDICARE, OTHER ==
[2020-12-28] MEDS ORDERED: SILVER SULFADIAZINE CREAM 25 GM TUBE ONE (09:16)
== END 2020-12-28 23:59 | disposition home or self-care (01) ==
LOC: WOU 08:35
PROVIDERS: ATTEND Podiatrist Foot & Ankle Surgery
DX: I87.311 Chronic venous hypertension (idiopathic) with ulcer of right lower extremity (principal); L97.312 Non-pressure chronic ulcer of right ankle with fat layer exposed; E11.9 Type 2 diabetes mellitus without complications; R60.0 Localized edema; L84 Corns and callosities; M79.604 Pain in right leg; Z79.82 Long term (current) use of aspirin
CPT/HCPCS: 11042

== ENCOUNTER → 2021-01-04 | Outpatient (CLI) | payer MEDICARE, OTHER ==
[~2021-01-04] MED LIST changes: +HYDROCORTISONE 1% CREAM 28.35 GM TUBE TP ONE; +MUPIROCIN 2% CREAM 15 GM TUBE TP ONE
== END | disposition home or self-care (01) ==
LOC: WOU 08:45
PROVIDERS: ATTEND Podiatrist Foot & Ankle Surgery
DX: I87.311 Chronic venous hypertension (idiopathic) with ulcer of right lower extremity (principal); L97.312 Non-pressure chronic ulcer of right ankle with fat layer exposed; I87.2 Venous insufficiency (chronic) (peripheral); E11.9 Type 2 diabetes mellitus without complications; L84 Corns and callosities; R60.0 Localized edema; Z79.82 Long term (current) use of aspirin
CPT/HCPCS: 11042

== ENCOUNTER 2021-02-01 08:55 | Outpatient (CLI) | payer MEDICARE, OTHER ==
[~2021-02-01 08:55] MED LIST changes: -HYDROCORTISONE 1% CREAM 28.35 GM TUBE TP ONE; -MUPIROCIN 2% CREAM 15 GM TUBE TP ONE
[2021-02-01] MEDS ORDERED: HYDROCORTISONE 1% CREAM 28.35 GM TUBE TP ONE ×2 (09:59→10:05)
[2021-02-01] MEDS ORDERED: GENTAMICIN 0.1% CREAM 15 GM TUBE ONE (10:03)
[2021-02-01] MEDS ORDERED: MUPIROCIN 2% CREAM 15 GM TUBE TP ONE (10:04)
== END 2021-02-01 23:59 | disposition home or self-care (01) ==
LOC: WOU 08:55
PROVIDERS: ATTEND Podiatrist Foot & Ankle Surgery
DX: I87.311 Chronic venous hypertension (idiopathic) with ulcer of right lower extremity (principal); L97.312 Non-pressure chronic ulcer of right ankle with fat layer exposed; I87.2 Venous insufficiency (chronic) (peripheral); R60.0 Localized edema; E11.9 Type 2 diabetes mellitus without complications; L84 Corns and callosities; M79.604 Pain in right leg; Z79.82 Long term (current) use of aspirin
CPT/HCPCS: 11042; J7040

== ENCOUNTER 2021-02-05 09:05 | Outpatient (CLI) | payer MEDICARE, OTHER | END 2021-02-05 23:59 | disposition home or self-care (01) | LOC: MSC 09:05 | PROVIDERS: ATTEND Anesthesiology | DX: E11.621 Type 2 diabetes mellitus with foot ulcer (principal); E11.40 Type 2 diabetes mellitus with diabetic neuropathy, unspecified; L97.513 Non-pressure chronic ulcer of other part of right foot with necrosis of muscle; G89.4 Chronic pain syndrome; M46.96 Unspecified inflammatory spondylopathy, lumbar region; M40.299 Other kyphosis, site unspecified; M62.830 Muscle spasm of back; Z96.653 Presence of artificial knee joint, bilateral; Z79.891 Long term (current) use of opiate analgesic; Z79.1 Long term (current) use of non-steroidal anti-inflammatories (NSAID) ==

== ENCOUNTER 2021-02-08 08:45 | Outpatient (CLI) | payer MEDICARE, OTHER ==
[2021-02-08] MEDS ORDERED: LIDOCAINE SOLN 4% 50 ML BOTTLE ONE (08:51)
[2021-02-08] MEDS ORDERED: HYDROCORTISONE 1% CREAM 28.35 GM TUBE TP ONE (09:21)
[2021-02-08] MEDS ORDERED: MUPIROCIN 2% CREAM 15 GM TUBE TP ONE (09:21)
== END 2021-02-08 23:59 | disposition home or self-care (01) ==
LOC: WOU 08:45
PROVIDERS: ATTEND Podiatrist Foot & Ankle Surgery
DX: I83.013 Varicose veins of right lower extremity with ulcer of ankle (principal); L97.312 Non-pressure chronic ulcer of right ankle with fat layer exposed; L84 Corns and callosities; M79.604 Pain in right leg; E11.622 Type 2 diabetes mellitus with other skin ulcer; R60.0 Localized edema; I10 Essential (primary) hypertension; E78.5 Hyperlipidemia, unspecified; Z83.3 Family history of diabetes mellitus; Z98.890 Other specified postprocedural states; Z79.82 Long term (current) use of aspirin; Z79.899 Other long term (current) drug therapy
CPT/HCPCS: 11042

== ENCOUNTER 2021-02-15 09:00 | Outpatient (CLI) | payer MEDICARE, OTHER ==
[2021-02-15] MEDS ORDERED: LIDOCAINE SOLN 4% 50 ML BOTTLE ONE (09:01)
[2021-02-15] MEDS ORDERED: GENTAMICIN 0.1% CREAM 15 GM TUBE ONE (09:27)
[2021-02-15] MEDS ORDERED: MUPIROCIN 2% CREAM 15 GM TUBE TP ONE (09:28)
== END 2021-02-15 23:59 | disposition home or self-care (01) ==
LOC: WOU 09:00
PROVIDERS: ATTEND Podiatrist Foot & Ankle Surgery
DX: I83.013 Varicose veins of right lower extremity with ulcer of ankle (principal); L97.312 Non-pressure chronic ulcer of right ankle with fat layer exposed; M79.604 Pain in right leg; E11.622 Type 2 diabetes mellitus with other skin ulcer; I87.2 Venous insufficiency (chronic) (peripheral); R60.0 Localized edema; K21.9 Gastro-esophageal reflux disease without esophagitis; I10 Essential (primary) hypertension; E78.5 Hyperlipidemia, unspecified; Z83.3 Family history of diabetes mellitus; Z79.82 Long term (current) use of aspirin; Z79.899 Other long term (current) drug therapy
CPT/HCPCS: 11042; J7040

== ENCOUNTER 2021-02-22 09:20 | Outpatient (CLI) | payer MEDICARE, OTHER | END 2021-02-22 23:59 | disposition home or self-care (01) | LOC: WOU 09:20 | PROVIDERS: ATTEND Podiatrist Foot & Ankle Surgery | DX: I83.013 Varicose veins of right lower extremity with ulcer of ankle (principal); L97.312 Non-pressure chronic ulcer of right ankle with fat layer exposed; E11.622 Type 2 diabetes mellitus with other skin ulcer; L84 Corns and callosities; I10 Essential (primary) hypertension; E78.5 Hyperlipidemia, unspecified; M79.604 Pain in right leg; Z79.82 Long term (current) use of aspirin; Z79.899 Other long term (current) drug therapy | CPT/HCPCS: 11042; J7040 ==

== ENCOUNTER 2021-03-01 09:00 | Outpatient (CLI) | payer MEDICARE, OTHER ==
[2021-03-01] MEDS ORDERED: LIDOCAINE SOLN 4% 50 ML BOTTLE ONE (09:44)
== END 2021-03-01 23:59 | disposition home or self-care (01) ==
LOC: WOU 09:00
PROVIDERS: ATTEND Podiatrist Foot & Ankle Surgery
DX: I87.311 Chronic venous hypertension (idiopathic) with ulcer of right lower extremity (principal); L97.312 Non-pressure chronic ulcer of right ankle with fat layer exposed; I87.2 Venous insufficiency (chronic) (peripheral); E11.9 Type 2 diabetes mellitus without complications; R60.0 Localized edema; M79.604 Pain in right leg; L84 Corns and callosities; I10 Essential (primary) hypertension
CPT/HCPCS: 11042; J7040

== ENCOUNTER 2021-03-08 09:05 | Outpatient (CLI) | payer MEDICARE, OTHER | END 2021-03-08 23:59 | disposition home or self-care (01) | LOC: WOU 09:05 | PROVIDERS: ATTEND Podiatrist Foot & Ankle Surgery | DX: I87.311 Chronic venous hypertension (idiopathic) with ulcer of right lower extremity (principal); L97.312 Non-pressure chronic ulcer of right ankle with fat layer exposed; I87.2 Venous insufficiency (chronic) (peripheral); E11.9 Type 2 diabetes mellitus without complications; R60.0 Localized edema; L84 Corns and callosities; L90.9 Atrophic disorder of skin, unspecified; Z79.82 Long term (current) use of aspirin | CPT/HCPCS: 11042; J7040 ==

== ENCOUNTER 2021-03-15 09:00 | Outpatient (CLI) | payer MEDICARE, OTHER ==
[~2021-03-15 09:00] MED LIST changes: +LIDOCAINE SOLN 4% 50 ML BOTTLE ONE
[2021-03-15] MEDS ORDERED: MUPIROCIN 2% CREAM 15 GM TUBE TP ONE (10:06)
[2021-03-15] MEDS ORDERED: HYDROCORTISONE 1% CREAM 28.35 GM TUBE TP ONE (10:07)
== END 2021-03-15 23:59 | disposition home or self-care (01) ==
LOC: WOU 09:00
PROVIDERS: ATTEND Podiatrist Foot & Ankle Surgery
DX: I87.311 Chronic venous hypertension (idiopathic) with ulcer of right lower extremity (principal); L97.312 Non-pressure chronic ulcer of right ankle with fat layer exposed; I87.2 Venous insufficiency (chronic) (peripheral); E11.9 Type 2 diabetes mellitus without complications; R60.0 Localized edema; L84 Corns and callosities; M79.604 Pain in right leg; Z79.82 Long term (current) use of aspirin
CPT/HCPCS: 11042; J7040

== ENCOUNTER 2021-03-20 09:45 | Outpatient (CLI) | payer MEDICARE, OTHER ==
[~2021-03-20 09:45] MED LIST changes: -LIDOCAINE SOLN 4% 50 ML BOTTLE ONE
[2021-03-20] MEDS ORDERED: LIDOCAINE 2% JEL 5 ML TUBE ONE (09:54)
== END 2021-03-20 23:59 | disposition home or self-care (01) ==
LOC: WOU 09:45
PROVIDERS: ATTEND Specialist
DX: I87.311 Chronic venous hypertension (idiopathic) with ulcer of right lower extremity (principal); L97.312 Non-pressure chronic ulcer of right ankle with fat layer exposed; I87.2 Venous insufficiency (chronic) (peripheral); E11.9 Type 2 diabetes mellitus without complications; R60.0 Localized edema; L84 Corns and callosities; M79.604 Pain in right leg; Z79.82 Long term (current) use of aspirin; I10 Essential (primary) hypertension; Z79.01 Long term (current) use of anticoagulants
CPT/HCPCS: G0463

== ENCOUNTER 2021-03-26 09:30 | Outpatient (CLI) | payer MEDICARE, OTHER | END 2021-03-26 23:59 | disposition home or self-care (01) | LOC: MSC 09:30 | PROVIDERS: ATTEND Anesthesiology | DX: L97.513 Non-pressure chronic ulcer of other part of right foot with necrosis of muscle (principal); E11.40 Type 2 diabetes mellitus with diabetic neuropathy, unspecified; G89.4 Chronic pain syndrome; M46.96 Unspecified inflammatory spondylopathy, lumbar region; M40.299 Other kyphosis, site unspecified; M62.830 Muscle spasm of back; Z96.653 Presence of artificial knee joint, bilateral; Z79.1 Long term (current) use of non-steroidal anti-inflammatories (NSAID); Z79.891 Long term (current) use of opiate analgesic ==

== ENCOUNTER 2021-03-26 10:28 | Outpatient (CLI) | payer MEDICARE, OTHER | END 2021-03-26 23:59 | disposition home or self-care (01) | LOC: RAD 10:28 | PROVIDERS: ATTEND Specialist | DX: M21.41 Flat foot [pes planus] (acquired), right foot (principal); M86.8X7 Other osteomyelitis, ankle and foot | CPT/HCPCS: 73610-TC ==

== ENCOUNTER 2021-03-29 09:10 | Outpatient (CLI) | payer MEDICARE, OTHER ==
[2021-03-29] MEDS ORDERED: HYDROCORTISONE 1% CREAM 28.35 GM TUBE TP ONE (10:55)
== END 2021-03-29 23:59 | disposition home or self-care (01) ==
LOC: WOU 09:10
PROVIDERS: ATTEND Podiatrist Foot & Ankle Surgery
DX: I87.311 Chronic venous hypertension (idiopathic) with ulcer of right lower extremity (principal); L97.312 Non-pressure chronic ulcer of right ankle with fat layer exposed; E11.9 Type 2 diabetes mellitus without complications; I87.2 Venous insufficiency (chronic) (peripheral); M79.604 Pain in right leg; L84 Corns and callosities; Z79.82 Long term (current) use of aspirin; R60.0 Localized edema
CPT/HCPCS: 11042; J7040

== ENCOUNTER 2021-04-05 09:10 | Outpatient (CLI) | payer MEDICARE, OTHER ==
[2021-04-05] MEDS ORDERED: LIDOCAINE SOLN 4% 50 ML BOTTLE ONE (09:26)
[2021-04-05] MEDS ORDERED: COLLAGENASE 5 GM TUBE UD TP ONE (10:23)
== END 2021-04-05 23:59 | disposition home or self-care (01) ==
LOC: WOU 09:10
PROVIDERS: ATTEND Podiatrist Foot & Ankle Surgery
DX: I87.311 Chronic venous hypertension (idiopathic) with ulcer of right lower extremity (principal); L97.312 Non-pressure chronic ulcer of right ankle with fat layer exposed; I87.2 Venous insufficiency (chronic) (peripheral); E11.9 Type 2 diabetes mellitus without complications; L84 Corns and callosities; R60.0 Localized edema; M79.604 Pain in right leg; Z79.82 Long term (current) use of aspirin
CPT/HCPCS: 11042; J7040

== ENCOUNTER 2021-04-12 09:00 | Outpatient (CLI) | payer MEDICARE, OTHER ==
[2021-04-12] MEDS ORDERED: LIDOCAINE SOLN 4% 50 ML BOTTLE ONE (09:09)
[2021-04-12] MEDS ORDERED: COLLAGENASE 5 GM TUBE UD TP ONE (09:57)
== END 2021-04-12 23:59 | disposition home or self-care (01) ==
LOC: WOU 09:00
PROVIDERS: ATTEND Podiatrist Foot & Ankle Surgery
DX: I87.311 Chronic venous hypertension (idiopathic) with ulcer of right lower extremity (principal); L97.312 Non-pressure chronic ulcer of right ankle with fat layer exposed; I87.2 Venous insufficiency (chronic) (peripheral); R60.0 Localized edema; E11.9 Type 2 diabetes mellitus without complications; L84 Corns and callosities; I10 Essential (primary) hypertension; M79.604 Pain in right leg; Z79.82 Long term (current) use of aspirin
CPT/HCPCS: 11042; J7040

== ENCOUNTER 2021-04-19 09:00 | Outpatient (CLI) | payer MEDICARE, OTHER ==
[2021-04-19] MEDS ORDERED: LIDOCAINE 2% JEL 5 ML TUBE ONE (09:26)
[2021-04-19] MEDS ORDERED: COLLAGENASE 5 GM TUBE UD TP ONE (10:02)
== END 2021-04-19 23:59 | disposition home or self-care (01) ==
LOC: WOU 09:00
PROVIDERS: ATTEND Podiatrist Foot & Ankle Surgery
DX: I87.311 Chronic venous hypertension (idiopathic) with ulcer of right lower extremity (principal); L97.312 Non-pressure chronic ulcer of right ankle with fat layer exposed; I87.2 Venous insufficiency (chronic) (peripheral); R60.0 Localized edema; E11.9 Type 2 diabetes mellitus without complications; L84 Corns and callosities; M79.604 Pain in right leg; Z79.82 Long term (current) use of aspirin; Z98.62 Peripheral vascular angioplasty status
CPT/HCPCS: 11042; J7040

== ENCOUNTER 2021-04-24 10:56 | Outpatient (CLI) | payer MEDICARE, OTHER ==
[2021-04-24] MEDS ORDERED: COLLAGENASE 5 GM TUBE UD TP ONE (11:37)
== END 2021-04-24 23:59 | disposition home health service (06) ==
LOC: WOU 10:56
PROVIDERS: ATTEND Specialist
DX: I87.311 Chronic venous hypertension (idiopathic) with ulcer of right lower extremity (principal); L97.312 Non-pressure chronic ulcer of right ankle with fat layer exposed; I87.2 Venous insufficiency (chronic) (peripheral); R60.0 Localized edema; E11.9 Type 2 diabetes mellitus without complications; M79.604 Pain in right leg; L84 Corns and callosities; Z79.82 Long term (current) use of aspirin
CPT/HCPCS: 29581; A6207

== ENCOUNTER 2021-05-03 08:20 | Outpatient (CLI) | payer MEDICARE, OTHER | END 2021-05-03 23:59 | disposition home health service (06) | LOC: WOU 08:20 | PROVIDERS: ATTEND Podiatrist Foot & Ankle Surgery | DX: I87.311 Chronic venous hypertension (idiopathic) with ulcer of right lower extremity (principal); L97.312 Non-pressure chronic ulcer of right ankle with fat layer exposed; I87.2 Venous insufficiency (chronic) (peripheral); E11.9 Type 2 diabetes mellitus without complications; L84 Corns and callosities; M79.604 Pain in right leg; R60.0 Localized edema; Z79.82 Long term (current) use of aspirin | CPT/HCPCS: 11042; A6207 ==

== ENCOUNTER 2021-05-17 08:15 | Outpatient (CLI) | payer MEDICARE, OTHER | END 2021-05-17 23:59 | disposition home health service (06) | LOC: WOU 08:15 | PROVIDERS: ATTEND Podiatrist Foot & Ankle Surgery | DX: I87.311 Chronic venous hypertension (idiopathic) with ulcer of right lower extremity (principal); L97.312 Non-pressure chronic ulcer of right ankle with fat layer exposed; E11.622 Type 2 diabetes mellitus with other skin ulcer; I87.2 Venous insufficiency (chronic) (peripheral); M79.604 Pain in right leg; L84 Corns and callosities; Z79.82 Long term (current) use of aspirin | CPT/HCPCS: 11042; A6207 ==

== ENCOUNTER 2021-05-31 08:15 | Outpatient (CLI) | payer MEDICARE, OTHER ==
[2021-05-31] MEDS ORDERED: LIDOCAINE SOLN 4% 50 ML BOTTLE ONE (08:23)
== END 2021-05-31 23:59 | disposition home health service (06) ==
LOC: WOU 08:15
PROVIDERS: ATTEND Podiatrist Foot & Ankle Surgery
DX: I87.311 Chronic venous hypertension (idiopathic) with ulcer of right lower extremity (principal); L97.312 Non-pressure chronic ulcer of right ankle with fat layer exposed; I87.2 Venous insufficiency (chronic) (peripheral); E11.9 Type 2 diabetes mellitus without complications; L84 Corns and callosities; M79.604 Pain in right leg; R60.0 Localized edema; I10 Essential (primary) hypertension; Z79.82 Long term (current) use of aspirin
CPT/HCPCS: 11042

== ENCOUNTER 2021-06-07 08:39 | Outpatient (CLI) | payer MEDICARE, OTHER | END 2021-06-07 23:59 | disposition home health service (06) | LOC: WOU 08:39 | PROVIDERS: ATTEND Podiatrist Foot & Ankle Surgery | DX: I87.311 Chronic venous hypertension (idiopathic) with ulcer of right lower extremity (principal); L97.312 Non-pressure chronic ulcer of right ankle with fat layer exposed; E11.9 Type 2 diabetes mellitus without complications; I87.2 Venous insufficiency (chronic) (peripheral); R60.0 Localized edema; L84 Corns and callosities; M79.604 Pain in right leg; Z79.82 Long term (current) use of aspirin | CPT/HCPCS: 11042; J7040 ==

== ENCOUNTER 2021-06-14 08:50 | Outpatient (CLI) | payer MEDICARE, OTHER ==
[~2021-06-14 08:50] MED LIST changes: +LIDOCAINE SOLN 4% 50 ML BOTTLE ONE
== END 2021-06-14 23:59 | disposition home health service (06) ==
LOC: WOU 08:50
PROVIDERS: ATTEND Podiatrist Foot & Ankle Surgery
DX: I87.311 Chronic venous hypertension (idiopathic) with ulcer of right lower extremity (principal); L97.312 Non-pressure chronic ulcer of right ankle with fat layer exposed; I87.2 Venous insufficiency (chronic) (peripheral); E11.9 Type 2 diabetes mellitus without complications; L84 Corns and callosities; R60.0 Localized edema; M79.604 Pain in right leg; Z79.82 Long term (current) use of aspirin
CPT/HCPCS: 11042; A6207; J7040

== ENCOUNTER → 2021-06-18 | Outpatient (CLI) | payer MEDICARE, OTHER ==
[~2021-06-18] MED LIST changes: -LIDOCAINE SOLN 4% 50 ML BOTTLE ONE
== END | disposition home or self-care (01) ==
LOC: MSC 09:15
PROVIDERS: ATTEND Anesthesiology
DX: E11.621 Type 2 diabetes mellitus with foot ulcer (principal); E11.40 Type 2 diabetes mellitus with diabetic neuropathy, unspecified; L97.513 Non-pressure chronic ulcer of other part of right foot with necrosis of muscle; Z79.891 Long term (current) use of opiate analgesic; G89.4 Chronic pain syndrome; M46.96 Unspecified inflammatory spondylopathy, lumbar region; M54.16 Radiculopathy, lumbar region; M40.299 Other kyphosis, site unspecified; M62.830 Muscle spasm of back; Z96.653 Presence of artificial knee joint, bilateral; Z79.1 Long term (current) use of non-steroidal anti-inflammatories (NSAID); Z99.89 Dependence on other enabling machines and devices

== ENCOUNTER 2021-07-12 09:25 | Outpatient (CLI) | payer MEDICARE, OTHER ==
[2021-07-12] MEDS ORDERED: LIDOCAINE SOLN 4% 50 ML BOTTLE ONE (09:27)
== END 2021-07-12 23:59 | disposition home or self-care (01) ==
LOC: WOU 09:25
PROVIDERS: ATTEND Podiatrist Foot & Ankle Surgery
DX: I87.311 Chronic venous hypertension (idiopathic) with ulcer of right lower extremity (principal); L97.312 Non-pressure chronic ulcer of right ankle with fat layer exposed; I87.2 Venous insufficiency (chronic) (peripheral); L84 Corns and callosities; E11.9 Type 2 diabetes mellitus without complications; M79.604 Pain in right leg; R60.0 Localized edema; I10 Essential (primary) hypertension; Z79.82 Long term (current) use of aspirin
CPT/HCPCS: 11042; A6207

== ENCOUNTER 2021-07-26 11:00 | Outpatient (CLI) | payer MEDICARE, OTHER ==
[2021-07-26] MEDS ORDERED: LIDOCAINE SOLN 4% 50 ML BOTTLE ONE (11:18)
== END 2021-07-26 23:59 | disposition home health service (06) ==
LOC: WOU 11:00
PROVIDERS: ATTEND Podiatrist Foot & Ankle Surgery
DX: I87.311 Chronic venous hypertension (idiopathic) with ulcer of right lower extremity (principal); L97.312 Non-pressure chronic ulcer of right ankle with fat layer exposed; I87.2 Venous insufficiency (chronic) (peripheral); E11.9 Type 2 diabetes mellitus without complications; L84 Corns and callosities; M79.604 Pain in right leg; Z79.82 Long term (current) use of aspirin; I10 Essential (primary) hypertension
CPT/HCPCS: 11042; 73630; A6207; J7040

== ENCOUNTER 2021-07-30 09:14 | Outpatient (CLI) | payer MEDICARE, OTHER | END 2021-07-30 23:59 | disposition home or self-care (01) | LOC: MSC 09:14 | PROVIDERS: ATTEND Anesthesiology | DX: E11.621 Type 2 diabetes mellitus with foot ulcer (principal); E11.40 Type 2 diabetes mellitus with diabetic neuropathy, unspecified; L97.513 Non-pressure chronic ulcer of other part of right foot with necrosis of muscle; G89.4 Chronic pain syndrome; M54.16 Radiculopathy, lumbar region; M46.96 Unspecified inflammatory spondylopathy, lumbar region; M40.299 Other kyphosis, site unspecified; M62.830 Muscle spasm of back; Z79.1 Long term (current) use of non-steroidal anti-inflammatories (NSAID); Z79.899 Other long term (current) drug therapy ==

== ENCOUNTER 2021-08-02 08:35 | Outpatient (CLI) | payer MEDICARE, OTHER ==
[2021-08-02] MEDS ORDERED: LIDOCAINE SOLN 4% 50 ML BOTTLE ONE (08:44)
[2021-08-02] MEDS ORDERED: HYDROCORTISONE 1% CREAM 28.35 GM TUBE TP ONE (09:24)
== END 2021-08-02 23:59 | disposition home health service (06) ==
LOC: WOU 08:35
PROVIDERS: ATTEND Podiatrist Foot & Ankle Surgery
DX: I87.311 Chronic venous hypertension (idiopathic) with ulcer of right lower extremity (principal); L97.312 Non-pressure chronic ulcer of right ankle with fat layer exposed; I87.2 Venous insufficiency (chronic) (peripheral); R60.0 Localized edema; E11.9 Type 2 diabetes mellitus without complications; M79.604 Pain in right leg; L84 Corns and callosities; Z79.82 Long term (current) use of aspirin
CPT/HCPCS: 11042; A6207; J7040

== ENCOUNTER 2021-08-16 08:30 | Outpatient (CLI) | payer MEDICARE, OTHER ==
[2021-08-16] MEDS ORDERED: LIDOCAINE SOLN 4% 50 ML BOTTLE ONE (08:40)
[2021-08-16] MEDS ORDERED: LIDOCAINE 2% JEL 5 ML TUBE ONE (09:09)
[2021-08-16] MEDS ORDERED: HYDROCORTISONE 1% CREAM 28.35 GM TUBE TP ONE (09:11)
== END 2021-08-16 23:59 | disposition home health service (06) ==
LOC: WOU 08:30
PROVIDERS: ATTEND Podiatrist Foot & Ankle Surgery
DX: I87.311 Chronic venous hypertension (idiopathic) with ulcer of right lower extremity (principal); L97.312 Non-pressure chronic ulcer of right ankle with fat layer exposed; I87.2 Venous insufficiency (chronic) (peripheral); E11.9 Type 2 diabetes mellitus without complications; R60.0 Localized edema; L84 Corns and callosities; M79.604 Pain in right leg; Z79.82 Long term (current) use of aspirin
CPT/HCPCS: 97597; A6207

== ENCOUNTER 2021-08-30 08:35 | Outpatient (CLI) | payer MEDICARE, OTHER ==
[2021-08-30] MEDS ORDERED: LIDOCAINE SOLN 4% 50 ML BOTTLE ONE ×2 (08:52→08:53)
== END 2021-08-30 23:59 | disposition home health service (06) ==
LOC: WOU 08:35
PROVIDERS: ATTEND Podiatrist Foot & Ankle Surgery
DX: I87.311 Chronic venous hypertension (idiopathic) with ulcer of right lower extremity (principal); L97.312 Non-pressure chronic ulcer of right ankle with fat layer exposed; I87.2 Venous insufficiency (chronic) (peripheral); R60.0 Localized edema; E11.9 Type 2 diabetes mellitus without complications; Z79.82 Long term (current) use of aspirin; L84 Corns and callosities; M79.604 Pain in right leg
CPT/HCPCS: 11042; A6207

== ENCOUNTER → 2021-09-13 | Outpatient (CLI) | payer MEDICARE, OTHER ==
[~2021-09-13] MED LIST changes: +HYDROCORTISONE 1% CREAM 28.35 GM TUBE TP ONE; +LIDOCAINE SOLN 4% 50 ML BOTTLE ONE
== END | disposition home health service (06) ==
LOC: WOU 08:40
PROVIDERS: ATTEND Podiatrist Foot & Ankle Surgery
DX: I87.311 Chronic venous hypertension (idiopathic) with ulcer of right lower extremity (principal); L97.312 Non-pressure chronic ulcer of right ankle with fat layer exposed; I80.01 Phlebitis and thrombophlebitis of superficial vessels of right lower extremity; L03.115 Cellulitis of right lower limb; M79.604 Pain in right leg; E11.9 Type 2 diabetes mellitus without complications; Z79.82 Long term (current) use of aspirin
CPT/HCPCS: 11042; A6207

== ENCOUNTER 2021-09-27 08:45 | Outpatient (CLI) | payer MEDICARE, OTHER ==
[~2021-09-27 08:45] MED LIST changes: -HYDROCORTISONE 1% CREAM 28.35 GM TUBE TP ONE; -LIDOCAINE SOLN 4% 50 ML BOTTLE ONE
[2021-09-27] MEDS ORDERED: LIDOCAINE 2% JEL 5 ML TUBE ONE (08:50)
[2021-09-27] MEDS ORDERED: HYDROCORTISONE 1% CREAM 28.35 GM TUBE TP ONE (09:03)
== END 2021-09-27 23:59 | disposition home health service (06) ==
LOC: WOU 08:45
PROVIDERS: ATTEND Podiatrist Foot & Ankle Surgery
DX: I87.311 Chronic venous hypertension (idiopathic) with ulcer of right lower extremity (principal); L97.312 Non-pressure chronic ulcer of right ankle with fat layer exposed; I87.2 Venous insufficiency (chronic) (peripheral); I80.01 Phlebitis and thrombophlebitis of superficial vessels of right lower extremity; E11.9 Type 2 diabetes mellitus without complications; L84 Corns and callosities; M79.604 Pain in right leg; Z79.82 Long term (current) use of aspirin
CPT/HCPCS: 11042; 87070; 87075; 87077; 87186; A6207

== ENCOUNTER 2021-10-16 09:20 | Outpatient (CLI) | payer MEDICARE, OTHER | END 2021-10-17 23:59 | disposition home or self-care (01) | LOC: MSC 09:20 | PROVIDERS: ATTEND Anesthesiology | DX: G89.4 Chronic pain syndrome (principal); E11.621 Type 2 diabetes mellitus with foot ulcer; E11.40 Type 2 diabetes mellitus with diabetic neuropathy, unspecified; L97.513 Non-pressure chronic ulcer of other part of right foot with necrosis of muscle; M54.16 Radiculopathy, lumbar region; M46.96 Unspecified inflammatory spondylopathy, lumbar region; M40.299 Other kyphosis, site unspecified; M62.830 Muscle spasm of back; Z79.891 Long term (current) use of opiate analgesic; Z79.899 Other long term (current) drug therapy ==

== ENCOUNTER 2021-10-18 08:30 | Outpatient (CLI) | payer MEDICARE, OTHER | END 2021-10-18 23:59 | disposition home or self-care (01) | LOC: WOU 08:30 | PROVIDERS: ATTEND Podiatrist Foot & Ankle Surgery | DX: I87.311 Chronic venous hypertension (idiopathic) with ulcer of right lower extremity (principal); L97.312 Non-pressure chronic ulcer of right ankle with fat layer exposed; I87.2 Venous insufficiency (chronic) (peripheral); E11.9 Type 2 diabetes mellitus without complications; L84 Corns and callosities; M79.604 Pain in right leg; R60.0 Localized edema; Z79.82 Long term (current) use of aspirin; I10 Essential (primary) hypertension | CPT/HCPCS: 11042; A6207 ==

== ENCOUNTER 2021-10-22 08:40 | Outpatient (CLI) | payer MEDICARE, OTHER ==
[2021-10-22] MEDS ORDERED: LIDOCAINE SOLN 4% 50 ML BOTTLE ONE (08:49)
[2021-10-22] MEDS ORDERED: HYDROCORTISONE 1% CREAM 28.35 GM TUBE TP ONE (08:50)
[2021-10-22] MEDS ORDERED: GENTAMICIN 0.1% CREAM 15 GM TUBE ONE (09:08)
[2021-10-22] MEDS ORDERED: SILVER SULFADIAZINE CREAM 25 GM TUBE ONE (09:08)
== END 2021-10-22 23:59 | disposition home health service (06) ==
LOC: WOU 08:40
PROVIDERS: ATTEND Podiatrist Foot & Ankle Surgery
DX: I87.311 Chronic venous hypertension (idiopathic) with ulcer of right lower extremity (principal); L97.312 Non-pressure chronic ulcer of right ankle with fat layer exposed; L03.115 Cellulitis of right lower limb; B95.62 Methicillin resistant Staphylococcus aureus infection as the cause of diseases classified elsewhere; I87.2 Venous insufficiency (chronic) (peripheral); E11.9 Type 2 diabetes mellitus without complications; L84 Corns and callosities; R60.0 Localized edema; M79.604 Pain in right leg; I10 Essential (primary) hypertension
CPT/HCPCS: 11042; A6207

== ENCOUNTER 2021-10-25 08:40 | Outpatient (CLI) | payer MEDICARE, OTHER ==
[~2021-10-25 08:40] MED LIST changes: +LIDOCAINE SOLN 4% 50 ML BOTTLE ONE
[2021-10-25] MEDS ORDERED: GENTAMICIN 0.1% CREAM 15 GM TUBE ONE (08:56)
[2021-10-25] MEDS ORDERED: HYDROCORTISONE 1% CREAM 28.35 GM TUBE TP ONE (09:00)
== END 2021-10-25 23:59 | disposition home health service (06) ==
LOC: WOU 08:40
PROVIDERS: ATTEND Podiatrist Foot & Ankle Surgery
DX: I87.311 Chronic venous hypertension (idiopathic) with ulcer of right lower extremity (principal); L97.312 Non-pressure chronic ulcer of right ankle with fat layer exposed; I87.2 Venous insufficiency (chronic) (peripheral); E11.9 Type 2 diabetes mellitus without complications; R60.0 Localized edema; M79.604 Pain in right leg; L84 Corns and callosities; I10 Essential (primary) hypertension; Z79.82 Long term (current) use of aspirin
CPT/HCPCS: 11042; A6207

== ENCOUNTER 2021-10-29 11:50 | Outpatient (CLI) | payer MEDICARE, OTHER ==
[~2021-10-29 11:50] MED LIST changes: -LIDOCAINE SOLN 4% 50 ML BOTTLE ONE
[2021-10-29] MEDS ORDERED: LIDOCAINE SOLN 4% 50 ML BOTTLE ONE (11:56)
[2021-10-29] MEDS ORDERED: GENTAMICIN 0.1% CREAM 15 GM TUBE ONE (11:57)
[2021-10-29] MEDS ORDERED: HYDROCORTISONE 1% CREAM 28.35 GM TUBE TP ONE (12:08)
[2021-10-29] MEDS ORDERED: LIDOCAINE 2% JEL 5 ML TUBE ONE (12:09)
== END 2021-10-29 23:59 | disposition home health service (06) ==
LOC: WOU 11:50
PROVIDERS: ATTEND Podiatrist Foot & Ankle Surgery
DX: I87.311 Chronic venous hypertension (idiopathic) with ulcer of right lower extremity (principal); L97.312 Non-pressure chronic ulcer of right ankle with fat layer exposed; I87.2 Venous insufficiency (chronic) (peripheral); E11.9 Type 2 diabetes mellitus without complications; L84 Corns and callosities; R60.0 Localized edema; Z79.82 Long term (current) use of aspirin; M79.604 Pain in right leg
CPT/HCPCS: 11042; A6207

== ENCOUNTER 2021-11-01 10:45 | Outpatient (CLI) | payer MEDICARE, OTHER ==
[2021-11-01] MEDS ORDERED: LIDOCAINE SOLN 4% 50 ML BOTTLE ONE (10:52)
[2021-11-01] MEDS ORDERED: GENTAMICIN 0.1% CREAM 15 GM TUBE ONE (11:20)
== END 2021-11-01 23:59 | disposition home health service (06) ==
LOC: WOU 10:45
PROVIDERS: ATTEND Podiatrist Foot & Ankle Surgery
DX: I87.311 Chronic venous hypertension (idiopathic) with ulcer of right lower extremity (principal); L97.312 Non-pressure chronic ulcer of right ankle with fat layer exposed; I80.01 Phlebitis and thrombophlebitis of superficial vessels of right lower extremity; I87.2 Venous insufficiency (chronic) (peripheral); E11.9 Type 2 diabetes mellitus without complications; R60.0 Localized edema; L84 Corns and callosities; Z79.82 Long term (current) use of aspirin
CPT/HCPCS: 11042; A6207

== ENCOUNTER 2021-11-05 08:45 | Outpatient (CLI) | payer MEDICARE, OTHER ==
[2021-11-05] MEDS ORDERED: LIDOCAINE SOLN 4% 50 ML BOTTLE ONE (08:56)
[2021-11-05] MEDS ORDERED: GENTAMICIN 0.1% CREAM 15 GM TUBE ONE (08:58)
[2021-11-05] MEDS ORDERED: HYDROCORTISONE 1% CREAM 28.35 GM TUBE TP ONE (09:03)
== END 2021-11-05 23:59 | disposition home health service (06) ==
LOC: WOU 08:45
PROVIDERS: ATTEND Podiatrist Foot & Ankle Surgery
DX: I87.311 Chronic venous hypertension (idiopathic) with ulcer of right lower extremity (principal); L97.312 Non-pressure chronic ulcer of right ankle with fat layer exposed; E11.9 Type 2 diabetes mellitus without complications; R60.0 Localized edema; L84 Corns and callosities; M79.604 Pain in right leg; Z79.82 Long term (current) use of aspirin
CPT/HCPCS: 11042; A6207

== ENCOUNTER 2021-11-15 10:00 | Outpatient (CLI) | payer MEDICARE, OTHER ==
[2021-11-15] MEDS ORDERED: LIDOCAINE SOLN 4% 50 ML BOTTLE ONE (10:06)
[2021-11-15] MEDS ORDERED: GENTAMICIN 0.1% CREAM 15 GM TUBE ONE (10:36)
[2021-11-15] MEDS ORDERED: HYDROCORTISONE 1% CREAM 28.35 GM TUBE TP ONE (10:37)
== END 2021-11-15 23:59 | disposition home health service (06) ==
LOC: WOU 10:00
PROVIDERS: ATTEND Podiatrist Foot & Ankle Surgery
DX: I87.311 Chronic venous hypertension (idiopathic) with ulcer of right lower extremity (principal); L97.312 Non-pressure chronic ulcer of right ankle with fat layer exposed; L03.115 Cellulitis of right lower limb; I87.2 Venous insufficiency (chronic) (peripheral); E11.9 Type 2 diabetes mellitus without complications; L84 Corns and callosities; M79.604 Pain in right leg; Z79.82 Long term (current) use of aspirin
CPT/HCPCS: 11042; 87070; 87075; 87077; 87186; A6207

== ENCOUNTER 2021-11-22 09:20 | Outpatient (CLI) | payer MEDICARE, OTHER ==
[~2021-11-22 09:20] MED LIST changes: +LIDOCAINE SOLN 4% 50 ML BOTTLE ONE
[2021-11-22] MEDS ORDERED: GENTAMICIN 0.1% CREAM 15 GM TUBE ONE (09:43)
== END 2021-11-22 23:59 | disposition home health service (06) ==
LOC: WOU 09:20
PROVIDERS: ATTEND Podiatrist Foot & Ankle Surgery
DX: I87.311 Chronic venous hypertension (idiopathic) with ulcer of right lower extremity (principal); L97.312 Non-pressure chronic ulcer of right ankle with fat layer exposed; I87.2 Venous insufficiency (chronic) (peripheral); E11.9 Type 2 diabetes mellitus without complications; I80.01 Phlebitis and thrombophlebitis of superficial vessels of right lower extremity; R60.0 Localized edema; M79.604 Pain in right leg; L84 Corns and callosities; Z79.82 Long term (current) use of aspirin
CPT/HCPCS: 29581; A6207

== ENCOUNTER 2021-11-26 08:47 | Outpatient (CLI) | payer MEDICARE, OTHER ==
[~2021-11-26 08:47] MED LIST changes: -LIDOCAINE SOLN 4% 50 ML BOTTLE ONE
== END 2021-11-26 23:59 | disposition home or self-care (01) ==
LOC: MSC 08:47
PROVIDERS: ATTEND Anesthesiology
DX: M46.96 Unspecified inflammatory spondylopathy, lumbar region (principal); M54.16 Radiculopathy, lumbar region; M40.299 Other kyphosis, site unspecified; M62.830 Muscle spasm of back; G89.4 Chronic pain syndrome; E11.621 Type 2 diabetes mellitus with foot ulcer; L97.513 Non-pressure chronic ulcer of other part of right foot with necrosis of muscle; Z79.891 Long term (current) use of opiate analgesic; Z79.1 Long term (current) use of non-steroidal anti-inflammatories (NSAID); Z79.899 Other long term (current) drug therapy; Z96.653 Presence of artificial knee joint, bilateral

== ENCOUNTER 2021-11-27 12:57 | Outpatient (CLI) | payer MEDICARE, OTHER | END 2021-11-27 23:59 | disposition home or self-care (01) | LOC: MRI 12:57 | PROVIDERS: ATTEND Anesthesiology | DX: M51.36 Other intervertebral disc degeneration, lumbar region (principal); M51.27 Other intervertebral disc displacement, lumbosacral region; M48.8X7 Other specified spondylopathies, lumbosacral region; M48.07 Spinal stenosis, lumbosacral region; M43.17 Spondylolisthesis, lumbosacral region; M51.34 Other intervertebral disc degeneration, thoracic region; M48.04 Spinal stenosis, thoracic region; M43.14 Spondylolisthesis, thoracic region; M48.8X4 Other specified spondylopathies, thoracic region | CPT/HCPCS: 72146-TC; 72148-TC ==

== ENCOUNTER 2021-11-29 08:45 | Outpatient (CLI) | payer MEDICARE, OTHER ==
[2021-11-29] MEDS ORDERED: LIDOCAINE SOLN 4% 50 ML BOTTLE ONE (09:02)
[2021-11-29] MEDS ORDERED: GENTAMICIN 0.1% CREAM 15 GM TUBE ONE ×2 (09:24→09:28)
[2021-11-29] MEDS ORDERED: HYDROCORTISONE 1% CREAM 28.35 GM TUBE TP ONE (09:25)
== END 2021-11-29 23:59 | disposition home health service (06) ==
LOC: WOU 08:45
PROVIDERS: ATTEND Podiatrist Foot & Ankle Surgery
DX: I87.311 Chronic venous hypertension (idiopathic) with ulcer of right lower extremity (principal); L97.312 Non-pressure chronic ulcer of right ankle with fat layer exposed; I87.2 Venous insufficiency (chronic) (peripheral); I80.01 Phlebitis and thrombophlebitis of superficial vessels of right lower extremity; E11.9 Type 2 diabetes mellitus without complications; R60.0 Localized edema; M79.604 Pain in right leg; L84 Corns and callosities; Z79.82 Long term (current) use of aspirin
CPT/HCPCS: 97597; A6207

== ENCOUNTER 2021-12-06 08:45 | Outpatient (CLI) | payer MEDICARE, OTHER ==
[~2021-12-06 08:45] MED LIST changes: -CADEXOMER IODINE UD 5 GM TUBE ONE; -GENTAMICIN 0.1% CREAM 15 GM TUBE ONE; -HYDROCORTISONE 1% CREAM 28.35 GM TUBE TP ONE; -LIDOCAINE SOLN 4% 50 ML BOTTLE ONE
== END 2021-12-06 23:59 | disposition home or self-care (01) ==
LOC: LAB 08:45
PROVIDERS: ATTEND Anesthesiology
DX: Z01.812 Encounter for preprocedural laboratory examination (principal); Z20.822 Contact with and (suspected) exposure to COVID-19
CPT/HCPCS: C9803; U0003 ×2

== ENCOUNTER → 2021-12-06 | Outpatient (CLI) | payer MEDICARE, OTHER ==
[~2021-12-06] MED LIST changes: +CADEXOMER IODINE UD 5 GM TUBE ONE; +GENTAMICIN 0.1% CREAM 15 GM TUBE ONE; +HYDROCORTISONE 1% CREAM 28.35 GM TUBE TP ONE; +LIDOCAINE SOLN 4% 50 ML BOTTLE ONE
== END | disposition home health service (06) ==
LOC: WOU 08:30
PROVIDERS: ATTEND Podiatrist Foot & Ankle Surgery
DX: I87.312 Chronic venous hypertension (idiopathic) with ulcer of left lower extremity (principal); L97.312 Non-pressure chronic ulcer of right ankle with fat layer exposed; I80.01 Phlebitis and thrombophlebitis of superficial vessels of right lower extremity; I87.2 Venous insufficiency (chronic) (peripheral); E11.9 Type 2 diabetes mellitus without complications; L84 Corns and callosities; M79.604 Pain in right leg; Z79.82 Long term (current) use of aspirin
CPT/HCPCS: 11042; A6207

== ENCOUNTER 2021-12-12 07:36 | Day surgery (SDC) | payer MEDICARE, OTHER ==
--- NOTE | 2021-12-12 08:00 | NUR ---
RN NOTES RECEIVED PATIENT AT 0800 AM . PATIENT IS ALERT AND ORIENTED TIMES 4. ANGOLAN SPEAKER . NO PAIN NOTYED. NO SOB NOTED. NO DISTRESS NOTED. MRSA SWAB TEST ON BOTH NOSTRILS DONE. IV ACCESS ON THE LEFT HAND # 24 INTACT. ALL NEEDS ATTENDED. PATIENT LEFT UNIT TO OR AT 0937 AM.
[2021-12-12] MEDS ORDERED: IOHEXOL 50 ML IV ONE (08:57)
[2021-12-12] MEDS ORDERED: LIDOCAINE /MPF 1% VIAL 5 ML VIAL ONE (08:57)
[2021-12-12] MEDS ORDERED: DEXAMETHASONE SOD PHOSPHATE 10 MG/ML VIAL ONE (08:57)
[2021-12-12] MEDS ORDERED: BUPIVACAINE 0.25% 75 MG/30 ML VIAL ONE (09:09)
--- NOTE | 2021-12-12 10:30 | NUR ---
RN NOTES RECEIVED PATIENT BACK FROM OR AT 1030 AM. PATIENT ALERT AND ORIENTED TIMES 4. NO PAIN NOTED. NO SOB NOTED. NO DISTRESS NOTED. IV ACCESS INTACT. ABLE TO MAKE NEEDS KNOWN . GABY THE OR NURSE CAME WITH PATIENT. NO NEW ORDERS WERE GIVEN. VITAL SIGNS STABLE . T=98.4, CF=172/80, RR=18, O2=96% RA. ALL NEEDS ATTENDED. ALL SAFETY MEASURES IN PLACE. BED LOCKED IN THE LOWEST POSITION. CALL LIGHT AND TABLE IN EASY REACH. WILL CONTINUE TO MONITOR.
--- NOTE | 2021-12-12 13:29 | NUR ---
GARAGE DOOR OPENER INSTALLER NOTES DISCHARGE PATIENT IN STABLE CONDITION. NO PAIN NOTED. NO SOB NOTED. NO DISTRESS NOTED. NO DISCOMFORT NOTED. VITAL SIGNS IN NORMAL RANGES. PATIENT ABLE TO AMBULATE TO THE BATHROOM WITH HER CANE. ALL NEEDS ATTENDED. IV SITE REMOVED . COVERED WITH DRY DRESSING . NO BLEEDING NOTED. ID BAND REMOVED. DISCHARGE INSTRUCTIONS GIVEN TO THE PATIENT. ALL THE BELONGINGS ACCOUNTED. IRMA WHEELED THE PATIENT TO THE LOBBY. DAUGHTER PICK THE PATIENT UP. PATIENT LEFT HOSPITAL IN STABLE CONDITION. MD AND CHARGE NURSE AWARE OF THE DISCHARGE.
[2021-12-12] MEDS ORDERED: ACARBOSE 25 MG TABLET PO SCH (17:00)
[2021-12-12] MEDS ORDERED: ERYTHROMYCIN BASE 500 MG PO SCH ×2 (21:00)
[2021-12-13] MEDS ORDERED: AMLODIPINE BESYLATE 5 MG TABLET PO SCH (09:00)
[2021-12-13] MEDS ORDERED: HYDROCHLOROTHIAZIDE 25 MG TABLET PO SCH (09:00)
[2021-12-13] MEDS ORDERED: ATORVASTATIN 10 MG TABLET PO SCH (09:00)
[2021-12-13] MEDS ORDERED: Medication Not On Formulary EA (Losartan/Hydrochlorothiazide (Losartan-Hctz 100-12.5 Mg PO SCH (09:00)
[2021-12-13] MEDS ORDERED: LOSARTAN POTASSIUM 50 MG TABLET PO SCH (09:00)
== END 2021-12-12 19:00 | disposition home or self-care (01) ==
LOC: DS 07:36 → UNDOADMIN 07:37 → MED 07:37 → UNDODISIN 13:00 → DS 19:00
PROVIDERS: ATTEND Anesthesiology
DX: M47.27 Other spondylosis with radiculopathy, lumbosacral region (principal); M79.604 Pain in right leg; M54.59 Other low back pain; G89.4 Chronic pain syndrome; E11.40 Type 2 diabetes mellitus with diabetic neuropathy, unspecified; Z98.890 Other specified postprocedural states; Z79.899 Other long term (current) drug therapy
CPT/HCPCS: 64483; 64484; 72020; 87081; A6402; J1100; J2704; J3490 ×3; J7030; Q9967; G0378

== ENCOUNTER 2021-12-13 08:40 | Outpatient (CLI) | payer MEDICARE, OTHER ==
[2021-12-13] MEDS ORDERED: LIDOCAINE SOLN 4% 50 ML BOTTLE ONE (08:48)
[2021-12-13] MEDS ORDERED: GENTAMICIN 0.1% CREAM 15 GM TUBE ONE (08:49)
[2021-12-13] MEDS ORDERED: HYDROCORTISONE 1% CREAM 28.35 GM TUBE TP ONE (08:50)
== END 2021-12-13 23:59 | disposition home health service (06) ==
LOC: WOU 08:40
PROVIDERS: ATTEND Podiatrist Foot & Ankle Surgery
DX: I87.311 Chronic venous hypertension (idiopathic) with ulcer of right lower extremity (principal); L97.312 Non-pressure chronic ulcer of right ankle with fat layer exposed; I80.01 Phlebitis and thrombophlebitis of superficial vessels of right lower extremity; R60.0 Localized edema; E11.9 Type 2 diabetes mellitus without complications; L84 Corns and callosities; M79.604 Pain in right leg; Z79.82 Long term (current) use of aspirin
CPT/HCPCS: 97597; A6207

== ENCOUNTER 2021-12-27 08:45 | Outpatient (CLI) | payer MEDICARE, OTHER ==
[2021-12-27] MEDS ORDERED: LIDOCAINE 2% JEL 5 ML TUBE ONE (09:00)
[2021-12-27] MEDS ORDERED: GENTAMICIN 0.1% CREAM 15 GM TUBE ONE (09:05)
[2021-12-27] MEDS ORDERED: HYDROCORTISONE 1% CREAM 28.35 GM TUBE TP ONE (09:06)
== END 2021-12-27 23:59 | disposition home health service (06) ==
LOC: WOU 08:45
PROVIDERS: ATTEND Podiatrist Foot & Ankle Surgery
DX: I87.311 Chronic venous hypertension (idiopathic) with ulcer of right lower extremity (principal); L97.312 Non-pressure chronic ulcer of right ankle with fat layer exposed; I87.2 Venous insufficiency (chronic) (peripheral); E11.9 Type 2 diabetes mellitus without complications; M79.604 Pain in right leg; L84 Corns and callosities; Z79.82 Long term (current) use of aspirin
CPT/HCPCS: 11042; A6207

== ENCOUNTER 2022-01-03 08:10 | Outpatient (CLI) | payer MEDICARE, OTHER ==
[2022-01-03] MEDS ORDERED: LIDOCAINE SOLN 4% 50 ML BOTTLE ONE (08:12)
[2022-01-03] MEDS ORDERED: HYDROCORTISONE 1% CREAM 28.35 GM TUBE TP ONE (08:36)
== END 2022-01-03 23:59 | disposition home health service (06) ==
LOC: WOU 08:10
PROVIDERS: ATTEND Podiatrist Foot & Ankle Surgery
DX: I87.311 Chronic venous hypertension (idiopathic) with ulcer of right lower extremity (principal); L97.312 Non-pressure chronic ulcer of right ankle with fat layer exposed; I87.2 Venous insufficiency (chronic) (peripheral); I80.01 Phlebitis and thrombophlebitis of superficial vessels of right lower extremity; E11.9 Type 2 diabetes mellitus without complications; L84 Corns and callosities; M79.604 Pain in right leg; Z79.82 Long term (current) use of aspirin; R60.0 Localized edema
CPT/HCPCS: 11042; A6207

== ENCOUNTER 2022-01-07 09:25 | Outpatient (CLI) | payer MEDICARE, OTHER | END 2022-01-07 23:59 | disposition home or self-care (01) | LOC: MSC 09:25 | PROVIDERS: ATTEND Anesthesiology | DX: G89.4 Chronic pain syndrome (principal); M46.96 Unspecified inflammatory spondylopathy, lumbar region; M54.16 Radiculopathy, lumbar region; M40.299 Other kyphosis, site unspecified; M62.830 Muscle spasm of back; M70.62 Trochanteric bursitis, left hip; E11.621 Type 2 diabetes mellitus with foot ulcer; L97.513 Non-pressure chronic ulcer of other part of right foot with necrosis of muscle; E11.40 Type 2 diabetes mellitus with diabetic neuropathy, unspecified; Z79.1 Long term (current) use of non-steroidal anti-inflammatories (NSAID); Z79.899 Other long term (current) drug therapy; Z96.653 Presence of artificial knee joint, bilateral ==

== ENCOUNTER → 2022-01-10 | Outpatient (CLI) | payer MEDICARE, OTHER ==
[~2022-01-10] MED LIST changes: +LIDOCAINE SOLN 4% 50 ML BOTTLE ONE
== END | disposition home health service (06) ==
LOC: WOU 08:30
PROVIDERS: ATTEND Podiatrist Foot & Ankle Surgery
DX: I87.311 Chronic venous hypertension (idiopathic) with ulcer of right lower extremity (principal); L97.312 Non-pressure chronic ulcer of right ankle with fat layer exposed; E11.9 Type 2 diabetes mellitus without complications; I87.2 Venous insufficiency (chronic) (peripheral); R60.0 Localized edema; L84 Corns and callosities; M79.604 Pain in right leg; Z79.82 Long term (current) use of aspirin
CPT/HCPCS: 11042; A6207

== ENCOUNTER 2022-01-17 08:45 | Outpatient (CLI) | payer MEDICARE, OTHER ==
[~2022-01-17 08:45] MED LIST changes: -LIDOCAINE SOLN 4% 50 ML BOTTLE ONE
[2022-01-17] MEDS ORDERED: LIDOCAINE SOLN 4% 50 ML BOTTLE ONE (09:05)
== END 2022-01-17 23:59 | disposition home health service (06) ==
LOC: WOU 08:45
PROVIDERS: ATTEND Podiatrist Foot & Ankle Surgery
DX: I87.311 Chronic venous hypertension (idiopathic) with ulcer of right lower extremity (principal); L97.312 Non-pressure chronic ulcer of right ankle with fat layer exposed; I87.2 Venous insufficiency (chronic) (peripheral); R60.0 Localized edema; E11.9 Type 2 diabetes mellitus without complications; M79.604 Pain in right leg; L84 Corns and callosities; I80.01 Phlebitis and thrombophlebitis of superficial vessels of right lower extremity; I10 Essential (primary) hypertension; Z79.82 Long term (current) use of aspirin
CPT/HCPCS: 11042

== ENCOUNTER 2022-01-24 08:30 | Outpatient (CLI) | payer MEDICARE, OTHER ==
[2022-01-24] MEDS ORDERED: LIDOCAINE SOLN 4% 50 ML BOTTLE ONE (08:38)
== END 2022-01-24 23:59 | disposition home health service (06) ==
LOC: WOU 08:30
PROVIDERS: ATTEND Podiatrist Foot & Ankle Surgery
DX: I87.312 Chronic venous hypertension (idiopathic) with ulcer of left lower extremity (principal); L97.312 Non-pressure chronic ulcer of right ankle with fat layer exposed; I87.2 Venous insufficiency (chronic) (peripheral); R60.0 Localized edema; E11.9 Type 2 diabetes mellitus without complications; I80.01 Phlebitis and thrombophlebitis of superficial vessels of right lower extremity; Z79.82 Long term (current) use of aspirin
CPT/HCPCS: 11042

== ENCOUNTER 2022-01-31 08:25 | Outpatient (CLI) | payer MEDICARE, OTHER ==
[~2022-01-31 08:25] MED LIST changes: +LIDOCAINE SOLN 4% 50 ML BOTTLE ONE
== END 2022-01-31 23:59 | disposition home health service (06) ==
LOC: WOU 08:25
PROVIDERS: ATTEND Podiatrist Foot & Ankle Surgery
DX: I87.311 Chronic venous hypertension (idiopathic) with ulcer of right lower extremity (principal); L97.312 Non-pressure chronic ulcer of right ankle with fat layer exposed; I87.2 Venous insufficiency (chronic) (peripheral); R60.0 Localized edema; E11.9 Type 2 diabetes mellitus without complications; L84 Corns and callosities; I80.01 Phlebitis and thrombophlebitis of superficial vessels of right lower extremity
CPT/HCPCS: 11042

== ENCOUNTER 2022-02-07 08:40 | Outpatient (CLI) | payer MEDICARE, OTHER ==
[~2022-02-07 08:40] MED LIST changes: -LIDOCAINE SOLN 4% 50 ML BOTTLE ONE
[2022-02-07] MEDS ORDERED: LIDOCAINE SOLN 4% 50 ML BOTTLE ONE (08:51)
[2022-02-07] MEDS ORDERED: HYDROCORTISONE 1% CREAM 28.35 GM TUBE TP ONE (09:18)
== END 2022-02-07 23:59 | disposition home health service (06) ==
LOC: WOU 08:40
PROVIDERS: ATTEND Podiatrist Foot & Ankle Surgery
DX: I87.311 Chronic venous hypertension (idiopathic) with ulcer of right lower extremity (principal); L97.312 Non-pressure chronic ulcer of right ankle with fat layer exposed; I87.2 Venous insufficiency (chronic) (peripheral); E11.9 Type 2 diabetes mellitus without complications; I80.01 Phlebitis and thrombophlebitis of superficial vessels of right lower extremity; L84 Corns and callosities; M79.604 Pain in right leg; I10 Essential (primary) hypertension; R60.0 Localized edema; Z79.82 Long term (current) use of aspirin
CPT/HCPCS: 11042

== ENCOUNTER 2022-02-21 08:50 | Outpatient (CLI) | payer MEDICARE, OTHER ==
[2022-02-21] MEDS ORDERED: LIDOCAINE SOLN 4% 50 ML BOTTLE ONE (09:06)
[2022-02-21] MEDS ORDERED: HYDROCORTISONE 1% CREAM 28.35 GM TUBE TP ONE (09:07)
== END 2022-02-21 23:59 | disposition home or self-care (01) ==
LOC: WOU 08:50
PROVIDERS: ATTEND Podiatrist Foot & Ankle Surgery
DX: I87.311 Chronic venous hypertension (idiopathic) with ulcer of right lower extremity (principal); L97.312 Non-pressure chronic ulcer of right ankle with fat layer exposed; L25.9 Unspecified contact dermatitis, unspecified cause; E11.622 Type 2 diabetes mellitus with other skin ulcer; I80.01 Phlebitis and thrombophlebitis of superficial vessels of right lower extremity; L84 Corns and callosities; M79.604 Pain in right leg; I10 Essential (primary) hypertension; E78.5 Hyperlipidemia, unspecified
CPT/HCPCS: 11042; A6207

== ENCOUNTER → 2022-02-28 | Outpatient (CLI) | payer MEDICARE, OTHER ==
[~2022-02-28] MED LIST changes: +HYDROCORTISONE 1% CREAM 28.35 GM TUBE TP ONE; +LIDOCAINE SOLN 4% 50 ML BOTTLE ONE
== END | disposition home health service (06) ==
LOC: WOU 08:45
PROVIDERS: ATTEND Podiatrist Foot & Ankle Surgery
DX: I87.311 Chronic venous hypertension (idiopathic) with ulcer of right lower extremity (principal); L97.312 Non-pressure chronic ulcer of right ankle with fat layer exposed; I80.01 Phlebitis and thrombophlebitis of superficial vessels of right lower extremity; I87.2 Venous insufficiency (chronic) (peripheral); E11.51 Type 2 diabetes mellitus with diabetic peripheral angiopathy without gangrene; L84 Corns and callosities; R60.0 Localized edema; M79.604 Pain in right leg; I10 Essential (primary) hypertension; Z79.82 Long term (current) use of aspirin
CPT/HCPCS: 11042; A6207

== ENCOUNTER → 2022-03-04 | Outpatient (CLI) | payer MEDICARE, OTHER | END | disposition home health service (06) | LOC: WOU 09:00 | PROVIDERS: ATTEND Podiatrist Foot & Ankle Surgery | DX: I87.311 Chronic venous hypertension (idiopathic) with ulcer of right lower extremity (principal); L97.312 Non-pressure chronic ulcer of right ankle with fat layer exposed; I80.01 Phlebitis and thrombophlebitis of superficial vessels of right lower extremity; I87.2 Venous insufficiency (chronic) (peripheral); E11.9 Type 2 diabetes mellitus without complications; R60.0 Localized edema; L84 Corns and callosities; Z79.82 Long term (current) use of aspirin; M79.604 Pain in right leg | CPT/HCPCS: 11042; A6207 ==

== ENCOUNTER 2022-03-14 08:49 | Outpatient (CLI) | payer MEDICARE, OTHER ==
[~2022-03-14 08:49] MED LIST changes: -HYDROCORTISONE 1% CREAM 28.35 GM TUBE TP ONE; -LIDOCAINE SOLN 4% 50 ML BOTTLE ONE
[2022-03-14] MEDS ORDERED: LIDOCAINE SOLN 4% 50 ML BOTTLE ONE (08:55)
[2022-03-14] MEDS ORDERED: MUPIROCIN 2% CREAM 15 GM TUBE TP ONE (09:22)
[2022-03-14] MEDS ORDERED: HYDROCORTISONE 1% CREAM 28.35 GM TUBE TP ONE (09:22)
[2022-03-14] MEDS ORDERED: UREA 10% -AHA 4% CREAM 57 GM TUBE ONE (09:23)
== END 2022-03-14 23:59 | disposition home health service (06) ==
LOC: WOU 08:49
PROVIDERS: ATTEND Podiatrist Foot & Ankle Surgery
DX: I87.311 Chronic venous hypertension (idiopathic) with ulcer of right lower extremity (principal); L97.312 Non-pressure chronic ulcer of right ankle with fat layer exposed; I80.01 Phlebitis and thrombophlebitis of superficial vessels of right lower extremity; S80.811A Abrasion, right lower leg, initial encounter; X58.XXXA Exposure to other specified factors, initial encounter; Y92.89 Other specified places as the place of occurrence of the external cause; I87.2 Venous insufficiency (chronic) (peripheral); E11.9 Type 2 diabetes mellitus without complications; R60.0 Localized edema; M79.604 Pain in right leg; L84 Corns and callosities; Z79.02 Long term (current) use of antithrombotics/antiplatelets; Z79.82 Long term (current) use of aspirin
CPT/HCPCS: 11042; A6207

== ENCOUNTER 2022-03-18 09:02 | Outpatient (CLI) | payer MEDICARE, OTHER ==
[2022-03-18] MEDS ORDERED: MUPIROCIN 2% CREAM 15 GM TUBE TP ONE (09:14)
[2022-03-18] MEDS ORDERED: HYDROCORTISONE 1% CREAM 28.35 GM TUBE TP ONE (09:16)
== END 2022-03-18 23:59 | disposition home health service (06) ==
LOC: WOU 09:02
PROVIDERS: ATTEND Podiatrist Foot & Ankle Surgery
DX: I87.311 Chronic venous hypertension (idiopathic) with ulcer of right lower extremity (principal); L97.312 Non-pressure chronic ulcer of right ankle with fat layer exposed; S80.811D Abrasion, right lower leg, subsequent encounter; X58.XXXD Exposure to other specified factors, subsequent encounter; I80.01 Phlebitis and thrombophlebitis of superficial vessels of right lower extremity; E11.9 Type 2 diabetes mellitus without complications; R60.0 Localized edema; L84 Corns and callosities; M79.604 Pain in right leg; Z79.82 Long term (current) use of aspirin
CPT/HCPCS: 11042; A6207

== ENCOUNTER 2022-03-28 08:55 | Outpatient (CLI) | payer MEDICARE, OTHER ==
[2022-03-28] MEDS ORDERED: LIDOCAINE SOLN 4% 50 ML BOTTLE ONE (09:02)
[2022-03-28] MEDS ORDERED: HYDROCORTISONE 1% CREAM 28.35 GM TUBE TP ONE (09:02)
[2022-03-28] MEDS ORDERED: MUPIROCIN 2% CREAM 15 GM TUBE TP ONE (09:08)
== END 2022-03-28 23:59 | disposition home health service (06) ==
LOC: WOU 08:55
PROVIDERS: ATTEND Podiatrist Foot & Ankle Surgery
DX: I87.311 Chronic venous hypertension (idiopathic) with ulcer of right lower extremity (principal); L97.312 Non-pressure chronic ulcer of right ankle with fat layer exposed; I87.2 Venous insufficiency (chronic) (peripheral); I80.01 Phlebitis and thrombophlebitis of superficial vessels of right lower extremity; E11.9 Type 2 diabetes mellitus without complications; L84 Corns and callosities; R60.0 Localized edema; Z79.82 Long term (current) use of aspirin
CPT/HCPCS: 11042; A6207

== ENCOUNTER 2022-04-04 09:00 | Outpatient (CLI) | payer MEDICARE, OTHER ==
[2022-04-04] MEDS ORDERED: LIDOCAINE SOLN 4% 50 ML BOTTLE ONE (09:06)
[2022-04-04] MEDS ORDERED: MUPIROCIN 2% CREAM 15 GM TUBE TP ONE (09:28)
[2022-04-04] MEDS ORDERED: HYDROCORTISONE 1% CREAM 28.35 GM TUBE TP ONE (09:28)
[2022-04-04] MEDS ORDERED: UREA 10% -AHA 4% CREAM 57 GM TUBE ONE (09:37)
== END 2022-04-04 23:59 | disposition home health service (06) ==
LOC: WOU 09:00
PROVIDERS: ATTEND Podiatrist Foot & Ankle Surgery
DX: I87.311 Chronic venous hypertension (idiopathic) with ulcer of right lower extremity (principal); L97.312 Non-pressure chronic ulcer of right ankle with fat layer exposed; I87.2 Venous insufficiency (chronic) (peripheral); I80.01 Phlebitis and thrombophlebitis of superficial vessels of right lower extremity; L84 Corns and callosities; E11.9 Type 2 diabetes mellitus without complications; R60.0 Localized edema; M79.604 Pain in right leg; Z79.82 Long term (current) use of aspirin
CPT/HCPCS: 11042; A6207

== ENCOUNTER 2022-04-11 09:45 | Outpatient (CLI) | payer MEDICARE, OTHER | END 2022-04-11 23:59 | disposition home health service (06) | LOC: WOU 09:45 | PROVIDERS: ATTEND Podiatrist Foot & Ankle Surgery | DX: I87.311 Chronic venous hypertension (idiopathic) with ulcer of right lower extremity (principal); L97.312 Non-pressure chronic ulcer of right ankle with fat layer exposed; I80.01 Phlebitis and thrombophlebitis of superficial vessels of right lower extremity; E11.9 Type 2 diabetes mellitus without complications; I87.2 Venous insufficiency (chronic) (peripheral); L84 Corns and callosities; M72.2 Plantar fascial fibromatosis; M79.604 Pain in right leg; B35.1 Tinea unguium; Z79.82 Long term (current) use of aspirin | CPT/HCPCS: 11042; G0463 ==

== ENCOUNTER 2022-05-02 08:34 | Outpatient (CLI) | payer MEDICARE, OTHER ==
[2022-05-02] MEDS ORDERED: LIDOCAINE SOLN 4% 50 ML BOTTLE ONE ×2 (08:36→09:05)
[2022-05-02] MEDS ORDERED: HYDROCORTISONE 1% CREAM 28.35 GM TUBE TP ONE (09:03)
[2022-05-02] MEDS ORDERED: MUPIROCIN 2% CREAM 15 GM TUBE TP ONE (09:04)
[2022-05-02] MEDS ORDERED: GENTAMICIN 0.1% CREAM 15 GM TUBE ONE (09:04)
[2022-05-02] MEDS ORDERED: TRIAMCINOLONE ACETONIDE 0.1% CR 15 GM TUBE TP ONE (09:04)
== END 2022-05-02 23:59 | disposition home health service (06) ==
LOC: WOU 08:34
PROVIDERS: ATTEND Podiatrist Foot & Ankle Surgery
DX: I87.311 Chronic venous hypertension (idiopathic) with ulcer of right lower extremity (principal); L97.312 Non-pressure chronic ulcer of right ankle with fat layer exposed; I87.2 Venous insufficiency (chronic) (peripheral); I80.01 Phlebitis and thrombophlebitis of superficial vessels of right lower extremity; L03.115 Cellulitis of right lower limb; M79.604 Pain in right leg; L84 Corns and callosities; M72.2 Plantar fascial fibromatosis; I10 Essential (primary) hypertension; E78.5 Hyperlipidemia, unspecified; Z79.82 Long term (current) use of aspirin
CPT/HCPCS: 11042; A6207

== ENCOUNTER 2022-05-09 08:39 | Outpatient (CLI) | payer MEDICARE, OTHER ==
[2022-05-09] MEDS ORDERED: LIDOCAINE SOLN 4% 50 ML BOTTLE ONE (08:41)
[2022-05-09] MEDS ORDERED: CLOTRIMAZOLE 1% 15 GM TUBE TP ONE (08:42)
[2022-05-09] MEDS ORDERED: UREA 10% -AHA 4% CREAM 57 GM TUBE ONE (08:43)
[2022-05-09] MEDS ORDERED: HYDROCORTISONE 1% CREAM 28.35 GM TUBE TP ONE (09:07)
== END 2022-05-09 23:59 | disposition home health service (06) ==
LOC: WOU 08:39
PROVIDERS: ATTEND Podiatrist Foot & Ankle Surgery
DX: I87.311 Chronic venous hypertension (idiopathic) with ulcer of right lower extremity (principal); L97.312 Non-pressure chronic ulcer of right ankle with fat layer exposed; I87.2 Venous insufficiency (chronic) (peripheral); E11.9 Type 2 diabetes mellitus without complications; I80.01 Phlebitis and thrombophlebitis of superficial vessels of right lower extremity; M79.604 Pain in right leg; L84 Corns and callosities; M72.2 Plantar fascial fibromatosis; Z79.82 Long term (current) use of aspirin
CPT/HCPCS: 11042; A6207

== ENCOUNTER 2022-05-16 08:30 | Outpatient (CLI) | payer MEDICARE, OTHER ==
[2022-05-16] MEDS ORDERED: LIDOCAINE SOLN 4% 50 ML BOTTLE ONE (08:31)
== END 2022-05-16 23:59 | disposition home health service (06) ==
LOC: WOU 08:30
PROVIDERS: ATTEND Podiatrist Foot & Ankle Surgery
DX: I87.311 Chronic venous hypertension (idiopathic) with ulcer of right lower extremity (principal); L97.312 Non-pressure chronic ulcer of right ankle with fat layer exposed; I87.2 Venous insufficiency (chronic) (peripheral); R60.0 Localized edema; E11.9 Type 2 diabetes mellitus without complications; L84 Corns and callosities; I80.01 Phlebitis and thrombophlebitis of superficial vessels of right lower extremity; M72.2 Plantar fascial fibromatosis; Z79.82 Long term (current) use of aspirin
CPT/HCPCS: 11042; A6207

== ENCOUNTER 2022-05-30 08:57 | Outpatient (CLI) | payer MEDICARE, OTHER ==
[2022-05-30] MEDS ORDERED: CLOTRIMAZOLE 1% 15 GM TUBE TP ONE (08:58)
[2022-05-31] MEDS ORDERED: IBUPROFEN 400 MG TABLET ONE (22:09)
== END 2022-05-30 23:50 | disposition home health service (06) ==
LOC: WOU 08:57
PROVIDERS: ATTEND Podiatrist Foot & Ankle Surgery
DX: I87.311 Chronic venous hypertension (idiopathic) with ulcer of right lower extremity (principal); L97.312 Non-pressure chronic ulcer of right ankle with fat layer exposed; I87.2 Venous insufficiency (chronic) (peripheral); E11.9 Type 2 diabetes mellitus without complications; R60.0 Localized edema; L84 Corns and callosities; I80.01 Phlebitis and thrombophlebitis of superficial vessels of right lower extremity; M72.2 Plantar fascial fibromatosis; M79.604 Pain in right leg; I10 Essential (primary) hypertension; Z79.82 Long term (current) use of aspirin
CPT/HCPCS: 11042; A6207

== ENCOUNTER 2022-07-18 08:55 | Outpatient (CLI) | payer MEDICARE, OTHER | END 2022-07-18 23:59 | disposition home health service (06) | LOC: WOU 08:55 | PROVIDERS: ATTEND Podiatrist Foot & Ankle Surgery | DX: I87.311 Chronic venous hypertension (idiopathic) with ulcer of right lower extremity (principal); L97.312 Non-pressure chronic ulcer of right ankle with fat layer exposed; I87.2 Venous insufficiency (chronic) (peripheral); I89.0 Lymphedema, not elsewhere classified; E11.9 Type 2 diabetes mellitus without complications; M72.2 Plantar fascial fibromatosis; M79.604 Pain in right leg; L84 Corns and callosities; Z79.82 Long term (current) use of aspirin | CPT/HCPCS: 11042; 87070; A6210; A6207 ==

== ENCOUNTER 2022-07-25 08:40 | Outpatient (CLI) | payer MEDICARE, OTHER | END 2022-07-25 23:59 | disposition home health service (06) | LOC: WOU 08:40 | PROVIDERS: ATTEND Podiatrist Foot & Ankle Surgery | DX: I87.311 Chronic venous hypertension (idiopathic) with ulcer of right lower extremity (principal); L97.312 Non-pressure chronic ulcer of right ankle with fat layer exposed; E11.9 Type 2 diabetes mellitus without complications; R60.0 Localized edema; I80.01 Phlebitis and thrombophlebitis of superficial vessels of right lower extremity; M72.2 Plantar fascial fibromatosis; Z79.82 Long term (current) use of aspirin | CPT/HCPCS: 11042; A6210; A6207 ==

== ENCOUNTER 2022-08-01 08:30 | Outpatient (CLI) | payer MEDICARE, OTHER ==
[2022-08-01] MEDS ORDERED: LIDOCAINE SOLN 4% 50 ML BOTTLE ONE (08:49)
[2022-08-01] MEDS ORDERED: HYDROCORTISONE 1% CREAM 28.35 GM TUBE TP ONE (09:01)
== END 2022-08-01 23:59 | disposition home health service (06) ==
LOC: WOU 08:30
PROVIDERS: ATTEND Podiatrist Foot & Ankle Surgery
DX: I87.311 Chronic venous hypertension (idiopathic) with ulcer of right lower extremity (principal); L97.312 Non-pressure chronic ulcer of right ankle with fat layer exposed; I87.2 Venous insufficiency (chronic) (peripheral); R60.0 Localized edema; I80.01 Phlebitis and thrombophlebitis of superficial vessels of right lower extremity; E11.9 Type 2 diabetes mellitus without complications; Z79.82 Long term (current) use of aspirin; L84 Corns and callosities; M72.2 Plantar fascial fibromatosis
CPT/HCPCS: 11042

== ENCOUNTER 2022-08-12 09:10 | Outpatient (CLI) | payer MEDICARE, OTHER | END 2022-08-12 23:59 | disposition home or self-care (01) | LOC: MSC 09:10 | PROVIDERS: ATTEND Anesthesiology | DX: E11.40 Type 2 diabetes mellitus with diabetic neuropathy, unspecified (principal); E11.621 Type 2 diabetes mellitus with foot ulcer; L97.513 Non-pressure chronic ulcer of other part of right foot with necrosis of muscle; Z79.899 Other long term (current) drug therapy; G89.4 Chronic pain syndrome; M54.16 Radiculopathy, lumbar region; M40.299 Other kyphosis, site unspecified; M62.830 Muscle spasm of back; Z79.891 Long term (current) use of opiate analgesic; Z96.653 Presence of artificial knee joint, bilateral; Z98.890 Other specified postprocedural states ==

== ENCOUNTER → 2022-08-15 | Outpatient (CLI) | payer MEDICARE, OTHER ==
[~2022-08-15] MED LIST changes: +HYDROCORTISONE 1% CREAM 28.35 GM TUBE TP ONE; +LIDOCAINE SOLN 4% 50 ML BOTTLE ONE; +UREA 10% -AHA 4% CREAM 57 GM TUBE ONE
== END | disposition home health service (06) ==
LOC: WOU 14:00
PROVIDERS: ATTEND Podiatrist Foot & Ankle Surgery
DX: I87.311 Chronic venous hypertension (idiopathic) with ulcer of right lower extremity (principal); L97.312 Non-pressure chronic ulcer of right ankle with fat layer exposed; I80.01 Phlebitis and thrombophlebitis of superficial vessels of right lower extremity; I87.2 Venous insufficiency (chronic) (peripheral); E11.9 Type 2 diabetes mellitus without complications; L03.115 Cellulitis of right lower limb; B96.5 Pseudomonas (aeruginosa) (mallei) (pseudomallei) as the cause of diseases classified elsewhere; B95.8 Unspecified staphylococcus as the cause of diseases classified elsewhere; I10 Essential (primary) hypertension; M79.604 Pain in right leg; L84 Corns and callosities; Z79.82 Long term (current) use of aspirin
CPT/HCPCS: 11042; A6210; A6207

== ENCOUNTER 2022-08-22 08:49 | Outpatient (CLI) | payer MEDICARE, OTHER ==
[~2022-08-22 08:49] MED LIST changes: -HYDROCORTISONE 1% CREAM 28.35 GM TUBE TP ONE; -LIDOCAINE SOLN 4% 50 ML BOTTLE ONE; -UREA 10% -AHA 4% CREAM 57 GM TUBE ONE
[2022-08-22] MEDS ORDERED: LIDOCAINE SOLN 4% 50 ML BOTTLE ONE (09:25)
[2022-08-22] MEDS ORDERED: HYDROCORTISONE 1% CREAM 28.35 GM TUBE TP ONE (09:40)
== END 2022-08-22 23:59 | disposition home health service (06) ==
LOC: WOU 08:49
PROVIDERS: ATTEND Podiatrist Foot & Ankle Surgery
DX: I87.311 Chronic venous hypertension (idiopathic) with ulcer of right lower extremity (principal); L97.312 Non-pressure chronic ulcer of right ankle with fat layer exposed; I80.01 Phlebitis and thrombophlebitis of superficial vessels of right lower extremity; E11.9 Type 2 diabetes mellitus without complications; I10 Essential (primary) hypertension; M79.604 Pain in right leg; L84 Corns and callosities; M72.2 Plantar fascial fibromatosis; Z79.82 Long term (current) use of aspirin
CPT/HCPCS: 11042

== ENCOUNTER 2022-08-29 09:01 | Outpatient (CLI) | payer MEDICARE, OTHER | END 2022-08-29 23:59 | disposition home health service (06) | LOC: WOU 09:01 | PROVIDERS: ATTEND Podiatrist Foot & Ankle Surgery | DX: I87.311 Chronic venous hypertension (idiopathic) with ulcer of right lower extremity (principal); L97.312 Non-pressure chronic ulcer of right ankle with fat layer exposed; I87.2 Venous insufficiency (chronic) (peripheral); E11.9 Type 2 diabetes mellitus without complications; I80.01 Phlebitis and thrombophlebitis of superficial vessels of right lower extremity; R60.0 Localized edema; M79.604 Pain in right leg; L84 Corns and callosities; Z79.82 Long term (current) use of aspirin | CPT/HCPCS: 29580; A6210; A6454 ==

== ENCOUNTER 2022-09-05 09:33 | Outpatient (CLI) | payer MEDICARE, OTHER ==
[~2022-09-05 09:33] MED LIST changes: +CLOTRIMAZOLE 1% 15 GM TUBE TP ONE
== END 2022-09-05 23:59 | disposition home health service (06) ==
LOC: WOU 09:33
PROVIDERS: ATTEND Podiatrist Foot & Ankle Surgery
DX: I87.311 Chronic venous hypertension (idiopathic) with ulcer of right lower extremity (principal); L97.312 Non-pressure chronic ulcer of right ankle with fat layer exposed; I87.2 Venous insufficiency (chronic) (peripheral); I80.01 Phlebitis and thrombophlebitis of superficial vessels of right lower extremity; E11.9 Type 2 diabetes mellitus without complications; L84 Corns and callosities; R60.0 Localized edema; Z79.82 Long term (current) use of aspirin
CPT/HCPCS: 11042; A6210

== ENCOUNTER 2022-09-12 09:33 | Outpatient (CLI) | payer MEDICARE, OTHER ==
[~2022-09-12 09:33] MED LIST changes: -CLOTRIMAZOLE 1% 15 GM TUBE TP ONE
== END 2022-09-12 23:59 | disposition home health service (06) ==
LOC: WOU 09:33
PROVIDERS: ATTEND Podiatrist Foot & Ankle Surgery
DX: I87.311 Chronic venous hypertension (idiopathic) with ulcer of right lower extremity (principal); L97.312 Non-pressure chronic ulcer of right ankle with fat layer exposed; I87.2 Venous insufficiency (chronic) (peripheral); I80.01 Phlebitis and thrombophlebitis of superficial vessels of right lower extremity; E11.9 Type 2 diabetes mellitus without complications; L84 Corns and callosities; M79.604 Pain in right leg; R60.0 Localized edema; Z79.82 Long term (current) use of aspirin
CPT/HCPCS: 11042; A6210

== ENCOUNTER → 2022-09-19 | Outpatient (CLI) | payer MEDICARE, OTHER ==
[~2022-09-19] MED LIST changes: +LIDOCAINE SOLN 4% 50 ML BOTTLE ONE
== END | disposition home health service (06) ==
LOC: WOU 09:18
PROVIDERS: ATTEND Podiatrist Foot & Ankle Surgery
DX: I87.311 Chronic venous hypertension (idiopathic) with ulcer of right lower extremity (principal); L97.312 Non-pressure chronic ulcer of right ankle with fat layer exposed; I80.01 Phlebitis and thrombophlebitis of superficial vessels of right lower extremity; E11.9 Type 2 diabetes mellitus without complications; R60.0 Localized edema; L84 Corns and callosities; M79.604 Pain in right leg; I10 Essential (primary) hypertension; E78.5 Hyperlipidemia, unspecified; Z79.82 Long term (current) use of aspirin
CPT/HCPCS: 11042; A6210

== ENCOUNTER 2022-09-26 09:19 | Outpatient (CLI) | payer MEDICARE, OTHER ==
[~2022-09-26 09:19] MED LIST changes: -LIDOCAINE SOLN 4% 50 ML BOTTLE ONE
[2022-09-26] MEDS ORDERED: HYDROCORTISONE 1% CREAM 28.35 GM TUBE TP ONE (09:21)
[2022-09-26] MEDS ORDERED: CLOTRIMAZOLE 1% 15 GM TUBE TP ONE (09:21)
== END 2022-09-26 23:59 | disposition home health service (06) ==
LOC: WOU 09:19
PROVIDERS: ATTEND Podiatrist Foot & Ankle Surgery
DX: I87.311 Chronic venous hypertension (idiopathic) with ulcer of right lower extremity (principal); L97.312 Non-pressure chronic ulcer of right ankle with fat layer exposed; I87.2 Venous insufficiency (chronic) (peripheral); I80.01 Phlebitis and thrombophlebitis of superficial vessels of right lower extremity; R60.0 Localized edema; E11.9 Type 2 diabetes mellitus without complications; L84 Corns and callosities; M79.604 Pain in right leg; Z79.82 Long term (current) use of aspirin
CPT/HCPCS: 11042; A6210; A6207

== ENCOUNTER 2022-10-03 08:57 | Outpatient (CLI) | payer MEDICARE, OTHER ==
[2022-10-03] MEDS ORDERED: CLOTRIMAZOLE 1% 15 GM TUBE TP ONE (09:21)
[2022-10-03] MEDS ORDERED: HYDROCORTISONE 1% CREAM 28.35 GM TUBE TP ONE (09:21)
== END 2022-10-03 23:59 | disposition home health service (06) ==
LOC: WOU 08:57
PROVIDERS: ATTEND Podiatrist Foot & Ankle Surgery
DX: I87.311 Chronic venous hypertension (idiopathic) with ulcer of right lower extremity (principal); L97.312 Non-pressure chronic ulcer of right ankle with fat layer exposed; R60.0 Localized edema; I80.01 Phlebitis and thrombophlebitis of superficial vessels of right lower extremity; E11.9 Type 2 diabetes mellitus without complications; L84 Corns and callosities; M79.604 Pain in right leg
CPT/HCPCS: 11042; A6210; A6207